=== PATIENT | male | born 1960 | race Caucasian/White ===

== ENCOUNTER 2016-10-29 09:40 | Inpatient (IN) ==
--- NOTE | 2016-10-28 22:04 | Discharge Summary ---
<Saniya Lester Murray - Last Filed: 10/28/16 22:01> - Discharge Diagnosis (1) Left rotator cuff tear arthropathy Priority: Primary Status: Acute - Discharge Medications Home Medications: OxyCODONE Immed Rel [Roxicodone 5 MG] 5 - 10 mg PO Q6HR PRN #40 tablet 10/28/16 [Rx] Albuterol Sulfate [Proair Hfa] 2 puff IH Q4H PRN 10/29/16 [History] Beclomethasone Diprop 40mcg [QVAR 40 mcg] 1 puff IH BID 10/29/16 [History] Cyclobenzaprine [Flexeril] 10 mg PO HS PRN 10/29/16 [History] Diclofenac Sodium [Voltaren] 50 mg PO Q8HR 10/29/16 [History] Gabapentin [Neurontin] 300 mg PO TID 10/29/16 [History] Meloxicam [Mobic] 15 mg PO DAILY 10/29/16 [History] Omeprazole [PriLOSEC] 40 mg PO DAILY 10/29/16 [History] Allergies/Adverse Reactions: Allergies Sulfa (Sulfonamide Antibiotics) Allergy (Verified 04/19/16 20:50) Hives Primary care physician: Rito Hurst - Patient Status Disposition: Home, Self-Care Condition: Good - Discharge Instructions Follow Up With: Rito Hurst MD [Primary Care Provider] - - Hospital Course Hospital course: Mr. Green is a 56 year old male - Time Spent with Patient Total time spent providing and/or coordinating discharge services: <Alex Coleman - Last Filed: 10/30/16 06:20> Date of Encounter: 10/30/16 Time of Encounter: 06:20 - Discharge Diagnosis (1) Left rotator cuff tear arthropathy Priority: Primary Status: Acute (2) Tobacco abuse Priority: Secondary Status: Chronic (3) Asthma Priority: Secondary Status: Chronic Qualifiers: Asthma severity: unspecified severity Asthma complication type: uncomplicated Qualified Code(s): J45.909 - Unspecified asthma, uncomplicated Primary care physician: Rito Hurst - Patient Status Functional capacity at discharge: independent ambulation Overall status at discharge: patient is progressing back to baseline - Hospital Course Hospital course: Mr. Green is a 56 year old male The patient had an uneventful postoperative course. They received antibiotics and physical therapy and were discharged in stable condition. There will follow -up in the office in 2 weeks. - Time Spent with Patient Total time spent providing and/or coordinating discharge services:
[2016-10-29] MEDS ORDERED: CeFAZolin Pre 2,000 MG/100 ML 2,000 MG/100 ML BAG IVPB ONE (10:05)
[2016-10-29] MEDS ORDERED: Albuterol 2.5 MG/3 ML NEBULIZER IH ONE (10:05)
[2016-10-29] MEDS ORDERED: Lidocaine -MPF 1% 2 ML VIAL ID ONE (10:05)
--- NOTE | 2016-10-29 10:07 | History & Physical Report ---
Date of Encounter: 10/29/16 Time of Encounter: 10:07 24 Hour HP Update - Instructions Instructions: If the History and Physical is less than 30 days old and was completed prior to A.M. admission and or procedure and has NOT been updated on calendar day of procedure please complete this update prior to performing procedure. - Update Patient reports changes in Medical Condition: No Changes in assessment/condition: No Changes in Medication: No Preop tests/diagnostics Reviewed: Yes Surgery Remains Indicated: Yes Consent for Planned Operative Procedure(s) Verified: Yes - Pre-Operative Checklist Preoperative Checklist Indicated: No Prophylactic Antibiotic Ordered: Yes Is VTE Prophylaxis Indicated?: Yes
[2016-10-29] MEDS ORDERED: Albuterol 2.5 MG/3 ML NEBULIZER ONE (10:10)
[2016-10-29] MEDS ORDERED: Ringers Solution, Lactated 1,000 ML IVC SCH ×2 (10:15→15:14)
[2016-10-29] MEDS ORDERED: Famotidine 20 MG/2 ML VIAL IVP ONE (10:51)
--- NOTE | 2016-10-29 11:06 | Anesthesia Evaluation PreOp ---
Date of Encounter: 10/29/16 Time of Encounter: 11:00 - Past History Planned Operation: Left Total Shoulder Reverse Ball Cardiac History: Denies any Significant Hx Pulmonary History: Smoker, Asthma SEISMIC OBSERVER History: Denies Any Significant HX Other Medical History: Denies Any Significant HX Anesthesia History: No Prior Anesthetic Complications Alcohol Use: occasionally Drug use: none Medications and Allergies OxyCODONE Immed Rel [Roxicodone 5 MG] 5 - 10 mg PO Q6HR PRN #40 tablet 10/28/16 [Rx] Albuterol Sulfate [Proair Hfa] 2 puff IH Q4H PRN 10/29/16 [History] Beclomethasone Diprop 40mcg [Qvar 40 mcg] 1 puff IH BID 10/29/16 [History] Cyclobenzaprine [Flexeril] 10 mg PO HS PRN 10/29/16 [History] Diclofenac Sodium [Voltaren] 50 mg PO Q8HR 10/29/16 [History] Gabapentin [Neurontin] 300 mg PO TID 10/29/16 [History] HYDROcodone/Acet 5/325 mg [[place] 5-325 mg] 1 - 2 tab PO Q8H PRN 10/29/16 [ History] Meloxicam [Mobic] 15 mg PO DAILY 10/29/16 [History] Omeprazole [PriLOSEC] 40 mg PO DAILY 10/29/16 [History] Allergies Sulfa (Sulfonamide Antibiotics) Allergy (Verified 04/19/16 20:50) Hives - Meds/Allergy Pre-op Review Medications Reviewed: Yes Allergies Reviewed: Yes Beta Blockers on Current Med List: No Anesthesia Results - Labs Laboratory Tests 09/01/16 14:12 Sodium 138 Potassium 3.9 BUN 15 Creatinine 1.02 - Imaging EKG: report reviewed (SR) Anesthesia Exam O2 Sat Height 1.78 m Height 1.78 m Height 1.78 m Weight 75.75 kg Weight 75.75 kg Weight 75.75 kg O2 Sat by Pulse Oximetry 96 O2 Sat by Pulse Oximetry 96 Vital Signs Temp Pulse Resp BP Pulse Ox 97.7 F 70 18 161/87 96 10/29/16 09:57 10/29/16 09:57 10/29/16 09:57 10/29/16 09:57 10/29/16 09:57 Height: 5'10 Weight: 167 lbs NPO (# of Hours): MN Pain Scale: 0 - HEENT Pupil (Motor): Pupils equal, EOMI Mallampati: II Teeth: Edentulous Oral Opening: Greater than 3 - SEISMIC OBSERVER LOC: Oriented SEISMIC OBSERVER Motor: Normal RUE, Normal LUE, Normal RLE, Normal LLE, Normal Face SEISMIC OBSERVER Sensory: Normal: RUE, LUE, RLE, LLE, Face - Cardiac Rhythm: Regular Murmur: None JVD: No Carotid Bruit: No - Pulmonary Breath Sounds: bilateral Clear Respiratory Effort: Symmetrical Anesthesia Assess/Plan ASA Score: 2 Modified [place] Scale for Level of Consciousness: Cooperative, oriented, and tranquil Anesthetic Plan: General, Regional Monitoring Plan: Standard Monitors Recovery Plan: PACU (Discussed GA and RA, agrees to proceed)
[2016-10-29] MEDS ORDERED: *HR* Propofol 200 MG/20 ML VIAL IVP ONE (11:48)
[2016-10-29] MEDS ORDERED: *HR* FentaNYL (PF) 100 MCG/2 ML VIAL ONE (11:49)
[2016-10-29] MEDS ORDERED: *HR* Midazolam HCl 2 MG/2 ML VIAL ONE (11:49)
[2016-10-29] MEDS ORDERED: Lidocaine -MPF 2% 2 ML VIAL ONE (11:49)
[2016-10-29] MEDS ORDERED: *HR* Rocuronium Bromide 50 MG/5 ML VIAL ONE (11:58)
[2016-10-29] MEDS ORDERED: ROPIVACAINE HCL/PF 0.5% 30 ML VIAL ONE (12:09)
[2016-10-29] MEDS ORDERED: Bupivacaine/Clonidine Syringe 1 EACH SYRINGE ONE (12:10)
--- NOTE | 2016-10-29 12:32 | Anesthesia Procedures ---
Date of Encounter: 10/29/16 Time of Encounter: 12:30 Procedures: Anesthesia - Nerve Block Procedure Date: 10/29/16 Time: 12:30 Allergies/Adv Reactions: Sulfa (Sulfonamide Antibiotics) Allergy (Verified 04/19/16 20:50) Hives Pre-op Diagnosis: left rotator cuff arthropathy Surgical Procedure: left shoulder reverse ball Checklist: Correct Patient Identifier, Correct procedure, History checked Correct side: Left Blood Thinner: No Monitor Applied: EKG, BP, Pulse Oximetry Supplemental Oxygen via Nasal Cannula (L/min): 2 Sedation: Versed (mg): 2 Sedation: Fentanyl (mcg): 100 Indication: Post Op Analgesia Pre-op Neuro Deficits: No Block Type: Supraclavicular Catheter placed: No Sterile Technique: Yes Ultrasound used: Yes Anatomy identified: Yes Visual spread of Local: Yes Neuro Stimulation: No Blood on Needle Aspiration: No Smooth Injection of Local: Yes Pain with Injection of Local: No Prep: Chlorhexadine Needle: 22 x 50 mm Stimuplex Local: 0.25% Bupivicaine w/Clonidine 20 mcg/cc (10cc superficial cervical plexus ), Ropivacaine (0.5% ropivicaine 15cc) Volume (cc): 25 Number of Attempts: 1 Complications: None/effective block
[2016-10-29] MEDS ORDERED: *HR* Promethazine 25 MG/ML VIAL IVP PRN (13:16)
[2016-10-29] MEDS ORDERED: Dexamethasone 4 MG/ML VIAL ONE (13:28)
[2016-10-29] MEDS ORDERED: Ondansetron 4 MG/2 ML VIAL ONE (13:28)
--- NOTE | 2016-10-29 13:46 | Orthopedic Operative Note ---
Date of procedure: 10/29/16 Pre-op diagnosis: Left shoulder cuff tear arthropathy Post-op diagnosis: same Procedure: Procedure: Left Total Shoulder Replacment Reverse, Estimated blood loss: 100 cc Hardware:Arthrex large glenoid baseplate, 2 4.5 screws. 1 6.5 screw, 42 lateral glenosphere, 9 humeral stem, poly insert 6 Exam Under anesthesia: Full Motion no instability Procedural Notes: Grade 4 arthritic changes humeral head irreparable tear Operative procedure: The patient was brought to the operating room and placed on the operating room table. After general anesthesia was administered the operative shoulder was examined. Findings were noted. The patient was placed in the modified beachchair position. All pressure points were padded appropriately. And the head was stabilized in the neutral position. The operative extremity was prepped and draped in the sterile surgical fashion. The patient received IV antibiotics prior to skin incision. A standard deltopectoral approach was made to the operative shoulder. Incision was made to the skin and subcutaneous tissue,hemo stasis was obtained with Bovie cautery. Using careful blunt dissection the cephalic vein was identified and mobilized medially. The deltopectoral interval was developed and the clavipectoral fascia was incised. The subscap was released off the lesser tuberosity and tagged with #2 FiberWire suture. The humerus was dislocated patient noted to have irreparable tear supraspinatus tendon, patient noted to have grade 4 arthritic changes humeral head and the humeral cut was made along the anatomic neck. Anterior and posterior Bankart retractors were placed to expose the glenoid. The glenoid guide was seated and the centering hole was made. It was reamed with the appropriate reamer. The large baseplate was seated and secured with (2) 4.5 screws and one 6.5 screw. The baseplate was irrigated and dried and the 42 lateral Glenosphere was seated and secured with the Mcdonald taper. The Mcdonald taper was tested and found to be secure the humerus was redislocated and prepared with the diaphyseal reamers, followed by a broaching process up to the appropriate size 9 in the patient's anatomic version. The metaphyseal reamer was then utilized. Trial reduction found the shoulder to be relocatable. Trial components were removed and drill holes were placed in the lesser tuberosity. They were filled with #5 FiberWire suture. These sutures were used for a subscap repair. The appropriate 9 stem was impacted in place in the patient's anatomic version. Trial reduction found the shoulder to be relocatable and stable with the appropriate 6. Trial component was removed and the real 6 was seated and secured the shoulder was reduced. The shoulder had excellent motion and excellent stability and no evidence of dislocation. The deep tissue was irrigated with pulse irrigation. The subscap was repaired incorporating the biceps tendon for biceps tenodesis and a subscap repair. The deltopectoral interval was closed with a running #1 PDS suture, subcutaneous tissue was irrigated and closed with 0 PDS suture, the skin was closed with Dermabond. The patient was placed in a sterile dressing, abduction brace and extubated. The patient was then transferred to the recovery room in stable condition. Anesthesia: NICO Surgeon: Alex Coleman Gaming Pit Boss: Saniya Lester Condition: stable Disposition: PACU
[2016-10-29] MEDS: *HR* HYDROmorphone (PF) 1 MG/ML SYRINGE IVP PRN ×2 (14:07→14:14)
[2016-10-29] MEDS ORDERED: Ketorolac 30 MG/ML VIAL IVP ONE (14:24)
[2016-10-29 14:51] LABS: Hematocrit 43.4 % (37.5-50.1); Hemoglobin 14.3 g/dL (12.9-16.9)
--- NOTE | 2016-10-29 14:59 | Anesthesia Evaluation Post Op ---
Date of Encounter: 10/29/16 Time of Encounter: 14:59 - Vital Signs Vital Signs: Last Vital Signs Temp 97.0 F L 10/29/16 14:31 Pulse 54 10/29/16 14:51 Resp 16 10/29/16 14:51 BP 178/90 10/29/16 14:41 Pulse Ox 100 10/29/16 14:51 - Lungs Lungs: Clear Ascult./Percussion - Airway Airway: Non-obstructed - Cardiovascular Regular Rate - Mental Status Mental Status: Alert & Oriented, Answers Appropriately - Pain Pain Scale: 2 - Nausea Vomiting Nausea Vomiting: Not Present - Hydration Hydration: Ice chips - Discharge PostOp Status: Transfer Patient to floor
[2016-10-29] MEDS ORDERED: *HR* OxyCODONE Immed Rel 5 MG TABLET PO PRN (15:14)
[2016-10-29] MEDS ORDERED: *HR* HYDROmorphone (PF) 1 MG/ML SYRINGE IVP PRN (15:14)
[2016-10-29] MEDS ORDERED: Ondansetron 4 MG/2 ML VIAL IVP PRN (15:14)
[2016-10-29] MEDS ORDERED: Sennosides 8.6 MG TABLET PO PRN (15:14)
[2016-10-29] MEDS ORDERED: Temazepam 15 MG CAPSULE PO PRN (15:14)
[2016-10-29] MEDS ORDERED: Naloxone 0.4 MG/ML INJ IVP PRN (15:14)
[2016-10-29] MEDS ORDERED: MOM Conc 10 ML UD.LIQ PO PRN (15:14)
[2016-10-29] MEDS ORDERED: Acetaminophen 325 MG TABLET PO PRN (15:14)
[2016-10-29] MEDS: Gabapentin 300 MG CAPSULE PO SCH ×2 (16:15→20:27)
[2016-10-29] MEDS: *HR* OxyCODONE Immed Rel 5 MG TABLET PO PRN ×2 (16:15→20:27)
[2016-10-29] MEDS: *HR* Enoxaparin 30 MG/0.3 ML SYRINGE SQ SCH (16:15)
[2016-10-29] MEDS ORDERED: *HR* Enoxaparin 30 MG/0.3 ML SYRINGE SQ SCH (18:00)
[2016-10-29] MEDS: Nicotine 21 MG PATCH.TD24 TD SCH (19:13)
[2016-10-29] MEDS: ceFAZolin 2,000 MG in D5% in Water 100 ML IVPB SCH (20:27)
[2016-10-29] MEDS: Beclomethasone 40mcg MDI IH SCH (20:47)
[2016-10-30] MEDS: *HR* OxyCODONE Immed Rel 5 MG TABLET PO PRN ×2 (03:46→09:56)
[2016-10-30] MEDS: *HR* Enoxaparin 30 MG/0.3 ML SYRINGE SQ SCH (05:21)
[2016-10-30] MEDS: ceFAZolin 2,000 MG in D5% in Water 100 ML IVPB SCH (05:21)
[2016-10-30 05:57] LABS: Hematocrit 43.5 % (37.5-50.1); Hemoglobin 14.6 g/dL (12.9-16.9)
--- NOTE | 2016-10-30 06:21 | Orthopedics Progress Note ---
Date of Encounter: 10/30/16 Time of Encounter: 06:21 - Assessment and Plan (1) Left rotator cuff tear arthropathy Current Visit: Yes Status: Acute (2) Tobacco abuse Current Visit: Yes Status: Chronic (3) Asthma Current Visit: Yes Status: Chronic Qualifiers: Asthma severity: unspecified severity Asthma complication type: uncomplicated Qualified Code(s): J45.909 - Unspecified asthma, uncomplicated Subjective Interval history: Patient was seen this morning doing well without complaints. Afebrile vital signs stable. Operative extremity: Neurovascularly intact Dressing clean dry and intact Calves nontender Assessment and plan: Continue with postoperative care Discharged today Objective Vital signs: Vital Signs Temp Pulse Resp BP Pulse Ox 10/30/16 04:47 98.4 F 66 16 148/78 96 10/30/16 00:37 97.8 F 75 18 169/84 97 10/29/16 20:47 64 16 95 10/29/16 20:30 97.7 F 65 18 165/85 95 10/29/16 17:39 97.3 F L 66 15 172/89 95 10/29/16 16:30 97.4 F L 61 18 171/84 100 10/29/16 15:55 97.4 F L 56 18 179/88 100 10/29/16 15:19 98.5 F 56 18 163/82 100 10/29/16 15:09 58 16 175/95 100 10/29/16 15:01 97.0 F L 55 16 168/90 99 10/29/16 14:51 54 16 168/88 100 10/29/16 14:41 53 16 178/90 99 10/29/16 14:31 97.0 F L 59 16 178/94 100 10/29/16 14:21 54 14 170/92 100 10/29/16 14:11 60 16 164/94 99 10/29/16 14:01 97.2 F L 59 12 176/93 100 10/29/16 12:27 60 16 158/88 98 10/29/16 12:11 63 16 159/90 99 10/29/16 10:17 18 96 10/29/16 09:57 97.7 F 70 18 161/87 96 Intake and Output 10/29/16 10/29/16 10/30/16 15:59 23:59 07:59 Intake Total 100 / 100 960 / 960 600 / 600 Output Total 100 / 100 Balance 0 / 0 960 / 960 600 / 600 Intake: IV Fluids 100 / 100 100 / 100 Ancef 2,000 MG In 100 / 100 Dextrose 5% 100 ML @ 200 mls/hr IVPB Q8H GRACE Rx#: [id number] Ancef Premix 2,000 MG/100 100 / 100 ML 2,000 mg In 100 ml @ 200 mls/hr IVPB PREOP ONE Rx#:[id number] Oral 0 / 0 960 / 960 500 / 500 Output: Estimated Blood Loss 100 / 100 Other: Meal Dinner Percent of Meal Consumed 100% # Voids 1 Weight 75.75 kg - Labs CBC & BMP: 10/30/16 05:14 - VTE Documentation of Mechanical Device: Venous foot pump, device Consult Discharge Plan - Plan Referrals: Rito Hurst MD [Primary Care Provider] -
[2016-10-30 06:45] VITALS: BP 180/76
[2016-10-30] MEDS: Beclomethasone 40mcg MDI IH SCH (08:16)
[2016-10-30] MEDS: Gabapentin 300 MG CAPSULE PO SCH (09:55)
[2016-10-30] MEDS: Nicotine 21 MG PATCH.TD24 TD SCH (09:57)
== END 2016-10-30 11:58 | disposition home or self-care (01) | DRG 315 ==
LOC: SAMDAY 09:40 → 3NENU 15:15
PROVIDERS: ADMIT Orthopaedic Surgery; ATTEND Orthopaedic Surgery

== ENCOUNTER 2017-08-18 13:22 | Inpatient (IN) ==
--- NOTE | 2017-08-18 13:43 | Emergency Department Note ---
Disposition Clinical Impression: Status post surgery Pulmonary embolism Qualifiers: Pulmonary embolism type: saddle Chronicity: acute Acute cor pulmonale presence : without acute cor pulmonale Qualified Code(s): I26.92 - Saddle embolus of pulmonary artery without acute cor pulmonale COPD (chronic obstructive pulmonary disease) Qualifiers: COPD type: COPD with acute exacerbation Qualified Code(s): J44.1 - Chronic obstructive pulmonary disease with (acute) exacerbation Disposition: Admitted As Inpatient Condition: Fair Time of Disposition: 18:00 Abdominal Pain HPI - General Chief Complaint: ED Abdominal Pain Stated Complaint: right abdominal/flank/back pain Time Seen by Provider: 08/18/17 13:26 Source: patient Mode of arrival: EMS Limitations: physical limitation Nursing Notes Reviewed: Yes Vital Signs Reviewed: Yes - History of Present Illness HPI Narrative: Mr. Polo is a 57-year-old with history of recent spinal fusion on August 13, COPD, asthma who presents to the ED with right abdominal and flank pain of approximately 24 hours duration which began insidiously and has become severe to the level of 8 out of 9. The pain is sharp and radiates towards his back and flank. He says that the pain is intense, and has made challenging for him to breathe because when he takes a deep breath and movement causes the pain to be worse. He has actually had a decrease in his ability to use his incentive spirometry as a result of this pain. He has never had a pain like this before, nothing seems to make it much better. He denies any fevers or chills throughout this process. He also denies any chest pain. - Related Data Home Medications Medication Instructions Recorded Confirmed RX: Albuterol Sulfate [Proair Hfa] 2 puff IH Q4H PRN 10/29/16 08/18/17 RX: Beclomethasone Diprop 40mcg 1 puff IH BID 10/29/16 08/18/17 [QVAR 40 mcg] RX: Cyclobenzaprine [Flexeril] 10 mg PO HS PRN 10/29/16 08/18/17 RX: Gabapentin [Neurontin] 600 mg PO TID 10/29/16 08/18/17 RX: Meloxicam [Mobic] 15 mg PO DAILY 10/29/16 08/18/17 RX: Albuterol Neb [Proventil Neb] 2.5 mg IH Q4H PRN 08/13/17 08/18/17 RX: Aspirin [Lo-Dose Aspirin EC] 81 mg PO DAILY 08/13/17 08/18/17 Previous Rx's Medication Instructions Recorded RX: OxyCODONE Immed Rel 5 mg PO Q6HR PRN #30 tablet 08/14/17 [Roxicodone 5 MG] Allergies Allergy/AdvReac Type Severity Reaction Status Date / Time Sulfa (Sulfonamide Allergy Hives Verified 08/18/17 13:25 Antibiotics) Constitutional: Denies: fever, chills, weakness Eyes: Denies: vision change ENT ED: Denies: congestion Cardiovascular: Denies: chest pain, palpitations, orthopnea, syncope Respiratory: Reports: cough, dyspnea, wheezes, sputum production Gastrointestinal: Reports: abdominal pain, nausea. Denies: vomiting, diarrhea, constipation Genitourinary: Reports: urgency, frequency. Denies: dysuria, hematuria, discharge Musculoskeletal: Reports: back pain Integumentary: Denies: rash Neurological: Denies: headache Endocrine: Denies: fatigue Hematological/Lymphatic: Denies: easy bleeding Abdominal Pain PMH - Past Medical History Medical history: Reports: arthritis, asthma, COPD, hypertension Male Surgical History: Reports: hip replacement, Tonsillectomy Psychiatric history: Reports: no psych history - Social History Smoking status: Current every day smoker Alcohol use: Reports: occasionally Drug use: Reports: marijuana Physical Exam Gen.: Vitals noted. No acute distress. AAOx3 HEENT: oropharynx clear, Normocephalic, atraumatic Neck: Supple. No adenopathy. Cardiac: RRR, no murmur, +S1/S2 Pulmonary: CTA bilaterally, no wheezes, rales or rhonchi, equal chest expansion Abdomen: soft, nontender, BS noted, no guarding Back: R. CVA Tenderness. Midline lumbar incision with steristrips and sutures intact s/p spinal fusion MSK: ROM intact, no joint swelling noted Extremities: no BLE edema, nontender calf, no cyanosis or clubbing Neuro: A&Ox3, moves all extremities, no focal deficits Psych: Appropriate mood and behavior Course Vital Signs Pulse Rate 99 08/18/17 13:30 Respiratory Rate 20 08/18/17 13:30 Blood Pressure 134/85 08/18/17 13:30 O2 Sat by Pulse Oximetry 92 08/18/17 13:30 Temperature 98.6 F 08/18/17 19:47 Pulse Rate 73 08/18/17 19:47 Respiratory Rate 20 08/18/17 19:47 Blood Pressure 126/78 08/18/17 19:47 O2 Sat by Pulse Oximetry 95 08/18/17 19:47 Oxygen Delivery Oxygen Delivery Nasal Cannula Abdominal Pain - MDM Narrative Medical decision making narrative: I reviewed the patient's labs and imaging. The patient is recently out of surgery on 08/13, and has a vague complaint of abdominal pain. Although he is not tachycardic, he does mention that he has had increased pain in his left side upon deep inspiration. Because of the patient's recent surgery I did determine that it would be appropriate to do a CTA of the chest to rule out PE. CT of the chest demonstrated bilateral pulmonary embolisms in the right lower and left lower pulmonary arteries. I spoke with the patient's surgeon Dr. Polanco about risks and benefits of anticoagulation and he was not concerned about the risks of anticoagulation in relation to his back surgery. At that time I did start the patient on anticoagulation with heparin. I also ordered a CT of the abdomen due to the abdominal pain he initially complained about which did not demonstrate any acute process in the abdomen. I think the most likely cause of this patient's pain was the pulmonary embolisms. I spoke with the hospitalist who is willing to accepted the patient. The patient and his family understood and agreed to this plan. - Medical Records Medical records reviewed: Yes I reviewed the patient's medical records. - Lab Data Lab results reviewed: Yes I reviewed the patient's lab results. Result diagrams: 08/18/17 14:34 08/18/17 13:54 Lab Results 08/18/17 08/18/17 08/18/17 Range/Units 13:42 13:54 13:54 WBC (4.3-11.1) K/mcL RBC (4.19-5.50) M/mcL Hgb (12.9-16.9) g/dL Hct (37.5-50.1) % MCV (83.0-100.0) fL MCH (28.0-33.3) pg MCHC (31.6-35.5) g/dL RDW (11.5-14.5) % Plt Count (140-400) K/mcL MPV (9.4-12.4) fL Immature Gran % (0-4) % Seg Neutrophils % % Lymphocytes % % Monocytes % % Eosinophils % % Basophils % % Neutrophils # (1.6-8.9) K/mcL Lymphocytes # (0.6-4.6) K/mcL Monocytes # (0.0-1.3) K/mcL Eosinophils # (0.0-0.6) K/mcL Basophils # (0.0-0.2) K/mcL PT (9.4-12.1) Seconds INR APTT (26.0-36.0) Seconds Sodium 131 L (136-145) mEq/L Potassium 4.5 (3.5-5.1) mEq/L Chloride 98 (98-107) mEq/L Carbon Dioxide 28 (23-29) mEq/L BUN 15 (6-20) mg/dL Creatinine 0.99 (0.70-1.30) mg/dL Est GFR ( Amer) > 60 (> 60) Est GFR (Non-Af Amer) > 60 (> 60) BUN/Creatinine Ratio 15 (6-26) Glucose 125 H (70-105) mg/dL Calculated Osmolality 274 L (280-300) Lactic Acid 1.1 (0.5-2.2) mmol/L Calcium 9.3 (8.6-10.3) mg/dL Total Bilirubin 0.7 (0.3-1.0) mg/dL Direct Bilirubin 0.1 (0.0-0.2) mg/dL Indirect Bilirubin 0.6 (0.0-1.2) mg/dL AST 19 (13-39) Units/L ALT 20 (7-52) Units/L Alkaline Phosphatase 80 (34-104) Units/L Troponin I (< 0.04) ng/mL Serum Total Protein 7.3 (6.4-8.9) g/dL Albumin 3.3 L (3.5-5.7) g/dL Globulin 4.0 H (2.4-3.5) g/dL Albumin/Globulin Ratio 0.8 L (1.1-2.2) Lipase 10 L (11-82) Units/L Urine Color Yellow (Yellow) Urine Clarity Clear (Clear) Urine pH 6.0 (5.0-8.0) pH Units Ur Specific [place] 1.015 (1.010-1.025) Urine Protein Negative (Neg-Trace) mg/dL Urine Glucose (UA) Normal (Normal) mg/dL Urine Ketones Negative (Negative) mg/dL Urine Blood Negative (Negative) Urine Nitrite Negative (Negative) Urine Bilirubin Negative (Negative) Urine Urobilinogen Normal (Normal) mg/dL Ur Leukocyte Esterase Negative (Negative) Ur Culture Indicated? NO (NO) Specimen Rejected 08/18/17 08/18/17 08/18/17 Range/Units 13:54 13:57 14:21 WBC (4.3-11.1) K/mcL RBC (4.19-5.50) M/mcL Hgb (12.9-16.9) g/dL Hct (37.5-50.1) % MCV (83.0-100.0) fL MCH (28.0-33.3) pg MCHC (31.6-35.5) g/dL RDW (11.5-14.5) % Plt Count (140-400) K/mcL MPV (9.4-12.4) fL Immature Gran % (0-4) % Seg Neutrophils % % Lymphocytes % % Monocytes % % Eosinophils % % Basophils % % Neutrophils # (1.6-8.9) K/mcL Lymphocytes # (0.6-4.6) K/mcL Monocytes # (0.0-1.3) K/mcL Eosinophils # (0.0-0.6) K/mcL Basophils # (0.0-0.2) K/mcL PT 12.8 H (9.4-12.1) Seconds INR 1.2 APTT 25.6 L (26.0-36.0) Seconds Sodium (136-145) mEq/L Potassium (3.5-5.1) mEq/L Chloride (98-107) mEq/L Carbon Dioxide (23-29) mEq/L BUN (6-20) mg/dL Creatinine (0.70-1.30) mg/dL Est GFR ( Amer) (> 60) Est GFR (Non-Af Amer) (> 60) BUN/Creatinine Ratio (6-26) Glucose (70-105) mg/dL Calculated Osmolality (280-300) Lactic Acid (0.5-2.2) mmol/L Calcium (8.6-10.3) mg/dL Total Bilirubin (0.3-1.0) mg/dL Direct Bilirubin (0.0-0.2) mg/dL Indirect Bilirubin (0.0-1.2) mg/dL AST (13-39) Units/L ALT (7-52) Units/L Alkaline Phosphatase (34-104) Units/L Troponin I < 0.03 (< 0.04) ng/mL Serum Total Protein (6.4-8.9) g/dL Albumin (3.5-5.7) g/dL Globulin (2.4-3.5) g/dL Albumin/Globulin Ratio (1.1-2.2) Lipase (11-82) Units/L Urine Color (Yellow) Urine Clarity (Clear) Urine pH (5.0-8.0) pH Units Ur Specific [place] (1.010-1.025) Urine Protein (Neg-Trace) mg/dL Urine Glucose (UA) (Normal) mg/dL Urine Ketones (Negative) mg/dL Urine Blood (Negative) Urine Nitrite (Negative) Urine Bilirubin (Negative) Urine Urobilinogen (Normal) mg/dL Ur Leukocyte Esterase (Negative) Ur Culture Indicated? (NO) Specimen Rejected Accident 08/18/17 Range/Units 14:34 WBC 12.3 H (4.3-11.1) K/mcL RBC 4.59 (4.19-5.50) M/mcL Hgb 13.6 (12.9-16.9) g/dL Hct 41.0 (37.5-50.1) % MCV 89.3 (83.0-100.0) fL MCH 29.6 (28.0-33.3) pg MCHC 33.2 (31.6-35.5) g/dL RDW 12.6 (11.5-14.5) % Plt Count 313 (140-400) K/mcL MPV 9.7 (9.4-12.4) fL Immature Gran % 2.9 (0-4) % Seg Neutrophils % 69.9 % Lymphocytes % 14.7 % Monocytes % 10.7 % Eosinophils % 1.1 % Basophils % 0.7 % Neutrophils # 8.6 (1.6-8.9) K/mcL Lymphocytes # 1.8 (0.6-4.6) K/mcL Monocytes # 1.3 (0.0-1.3) K/mcL Eosinophils # 0.1 (0.0-0.6) K/mcL Basophils # 0.1 (0.0-0.2) K/mcL PT (9.4-12.1) Seconds INR APTT (26.0-36.0) Seconds Sodium (136-145) mEq/L Potassium (3.5-5.1) mEq/L Chloride (98-107) mEq/L Carbon Dioxide (23-29) mEq/L BUN (6-20) mg/dL Creatinine (0.70-1.30) mg/dL Est GFR ( Amer) (> 60) Est GFR (Non-Af Amer) (> 60) BUN/Creatinine Ratio (6-26) Glucose (70-105) mg/dL Calculated Osmolality (280-300) Lactic Acid (0.5-2.2) mmol/L Calcium (8.6-10.3) mg/dL Total Bilirubin (0.3-1.0) mg/dL Direct Bilirubin (0.0-0.2) mg/dL Indirect Bilirubin (0.0-1.2) mg/dL AST (13-39) Units/L ALT (7-52) Units/L Alkaline Phosphatase (34-104) Units/L Troponin I (< 0.04) ng/mL Serum Total Protein (6.4-8.9) g/dL Albumin (3.5-5.7) g/dL Globulin (2.4-3.5) g/dL Albumin/Globulin Ratio (1.1-2.2) Lipase (11-82) Units/L Urine Color (Yellow) Urine Clarity (Clear) Urine pH (5.0-8.0) pH Units Ur Specific [place] (1.010-1.025) Urine Protein (Neg-Trace) mg/dL Urine Glucose (UA) (Normal) mg/dL Urine Ketones (Negative) mg/dL Urine Blood (Negative) Urine Nitrite (Negative) Urine Bilirubin (Negative) Urine Urobilinogen (Normal) mg/dL Ur Leukocyte Esterase (Negative) Ur Culture Indicated? (NO) Specimen Rejected - Radiology Data Radiology results reviewed: Yes I reviewed the patient's radiology results. - EKG Data EKG attestation: Yes I reviewed and interpreted this EKG. EKG results narrative: EKG demonstrates sinus rhythm with a ventricular rate of 87. Normal 121 QRS duration [address] QTC [address]-T wave changes and lateral leads without obvious elevation
--- NOTE | 2017-08-18 13:47 | Emergency Department Note ---
START Narrative - START START: I examined this patient and my medical decision-making was reviewed with the Resident Physician. I agree with the documented findings, disposition and treatment plan as described except to the extent set forth below. 57 year old male presnt to the ED via EMS for increased pain with breathing s/p a lumabr fusion done by Dr. Polanco on 08/07/17. Paitnet states he is also experienving increase rUQ pain with radiation into his back. No history of kidney stones, pyelo, and UTIs in the past no recent ABX use. No history of DVT/ PEs. We will do cardiopulmonary workup with CTA chest to rule out PE and ABCT with labs.
[2017-08-18 13:55] LABS: Bilirubin,Urine Negative (Negative); Blood,Urine Negative (Negative); Clarity,Urine Clear (Clear); Color,Urine Yellow (Yellow); Glucose,Urine (UA) Normal (Normal); Ketones,Urine Negative (Negative); Leukocyte Esterase,Urine Negative (Negative); Nitrite,Urine Negative (Negative); Protein,Urine Negative (Neg-Trace); Specific Gravity,Urine 1.015 (1.010-1.025); Urobilinogen,Urine Normal (Normal)
[2017-08-18 14:43] LABS: Alanine Aminotransferase 20 Units/L (7-52); Albumin 3.3 g/dL (3.5-5.7); Albumin/Globulin Ratio 0.8 (1.1-2.2); Alkaline Phosphatase 80 Units/L (34-104); Aspartate Amino Transferase 19 Units/L (13-39); BUN/Creatinine Ratio 15 (6-26); Bilirubin,Direct 0.1 mg/dL (0.0-0.2); Bilirubin,Indirect 0.6 mg/dL (0.0-1.2); Bilirubin,Total 0.7 mg/dL (0.3-1.0); Blood Urea Nitrogen 15 mg/dL (6-20); Calcium 9.3 mg/dL (8.6-10.3); Carbon Dioxide 28 mEq/L (23-29); Chloride 98 mEq/L (98-107); Glucose 125 mg/dL (70-105); Lipase 10 Units/L (11-82); Osmolality,Calculated 274 (280-300); Potassium 4.5 mEq/L (3.5-5.1); Sodium 131 mEq/L (136-145); Total Protein 7.3 g/dL (6.4-8.9); eGFR For African Americans > 60 (> 60); eGFR For Non-African Americans > 60 (> 60)
[2017-08-18 14:43] LABS: Basophils # 0.1 K/mcL (0.0-0.2); Basophils % 0.7 %; Eosinophils # 0.1 K/mcL (0.0-0.6); Eosinophils % 1.1 %; Hemoglobin 13.6 g/dL (12.9-16.9); Immature Granulocytes % 2.9 % (0-4); Lymphocytes # 1.8 K/mcL (0.6-4.6); Lymphocytes % 14.7 %; Mean Corpuscular HGB Conc 33.2 g/dL (31.6-35.5); Mean Corpuscular Hemoglobin 29.6 pg (28.0-33.3); Mean Corpuscular Volume 89.3 fL (83.0-100.0); Mean Platelet Volume 9.7 fL (9.4-12.4); Monocytes # 1.3 K/mcL (0.0-1.3); Monocytes % 10.7 %; Neutrophils # 8.6 K/mcL (1.6-8.9); Platelet Count 313 K/mcL (140-400); Red Blood Count 4.59 M/mcL (4.19-5.50); Red Cell Distribution Width 12.6 % (11.5-14.5); Segmented Neutrophils % 69.9 %
[2017-08-18] MEDS ORDERED: *HR* Morphine 2 MG/ML SYRINGE IVP ONE (15:06)
[2017-08-18] MEDS ORDERED: *HR* OxyCODONE/APAP 5/325 TABLET PO ONE (15:06)
[2017-08-18] MEDS ORDERED: *HR* Heparin 5,000 UNIT/ML VIAL IVP ONE (15:55)
[2017-08-18] MEDS ORDERED: *HR* Heparin 5,000 UNIT/ML VIAL IVP PRN (15:55)
[2017-08-18 16:23] LABS: INR 1.2; Prothrombin Time 12.8 Seconds (9.4-12.1)
[2017-08-18 16:25] LABS: Activated Partial Thrombo Time 25.6 Seconds (26.0-36.0)
[2017-08-18] MEDS ORDERED: MOM Conc 10 ML UD.LIQ PO PRN (16:32)
[2017-08-18] MEDS ORDERED: Acetaminophen 325 MG TABLET PO PRN (16:32)
[2017-08-18] MEDS ORDERED: Ondansetron 4 MG/2 ML VIAL IVP PRN (16:32)
[2017-08-18] MEDS ORDERED: Mag Hydrox/Al Hydrox/Simeth 30 ML UDC PO PRN (16:32)
[2017-08-18] MEDS ORDERED: Naloxone 0.4 MG/ML INJ IVP PRN (16:32)
[2017-08-18] MEDS ORDERED: *HR* OxyCODONE Immed Rel 5 MG TABLET PO PRN ×2 (16:34)
--- NOTE | 2017-08-18 16:36 | Internal Med History&Physical ---
<Freeman,Halina J - Last Filed: 08/18/17 18:06> Date of Encounter: 08/18/17 Time of Encounter: 16:36 Assessment and Plan (1) Pulmonary embolism Current visit: Yes Status: Acute presented with pleuritic chest pain. Chest CTA with acute bilateral pulmonary embolism, no evidence of right ventricular strain. Appears to be provoked in the setting of recent surgery. Dr. Polanco consulted in ED and okay to proceed with heparin gtt. Hemodynamically stable, no tachycardia or hypotension. Continue heparin gtt, will need to address further anticoagulation once seen by Dr. Polanco. Echo pending to assess for right heart strain. Qualifiers: Pulmonary embolism type: saddle Chronicity: acute Acute cor pulmonale presence: without acute cor pulmonale Qualified Code(s): I26.92 - Saddle embolus of pulmonary artery without acute cor pulmonale (2) COPD (chronic obstructive pulmonary disease) Current visit: Yes Status: Acute per hx. With diffuse scant wheezing on exam. Chest CTA shows mucous plugging and bilateral lobes, concerning for bronchiolitis edema or pneumonitis. WBC mildly elevated at 12.3, afebrile. Empirically treat with IV Levaquin, hold on steroids. PRN duo nebs. Urinary antigens, respiratory PCR pending. De- escalate ATB as he clinically improves and/or cultures finalized. Qualifiers: COPD type: COPD with acute exacerbation Qualified Code(s): J44.1 - Chronic obstructive pulmonary disease with (acute) exacerbation (3) Lumbar stenosis Current visit: No Status: Chronic with radiculopathy. S/p L2-5 laminectomy on 08/13/2017per Dr. Polanco. Neurologically intact. Incision without s/sx infection. Cont gabapentin, flexeril and oxycodone for pain. Dr. Polanco consulted Qualifiers: Neurogenic claudication status: with neurogenic claudication Qualified Code (s): M48.062 - Spinal stenosis, lumbar region with neurogenic claudication (4) DVT prophylaxis Current visit: Yes Status: Acute heparin gtt Internal Medicine - H&P: HPI Chief complaint: SOB Admitted From: Home Plans for Post Hospital Care: Home History of present illness: Mr. Green is a 57 year old male with past medical history COPD and recent back surgery who presented to [facility] 08/18/2017 with complaints of right-sided pleuritic chest pain. He was found to have bilateral pulmonary embolism and was started on heparin drip and EGD. Placed in observation status for further workup and treatment. Information obtained from chart review and patient report. Patient says he feels overall little better at time of my exam. Still with some shortness of breath that is worse with exertion. No chest pain. Says shortness of breath started yesterday afternoon has progressively gotten worse. No history of blood clots. No history of cancer recent surgery 5 days ago. Past Med Surg Social Fam HX - Past Medical History Medical history: arthritis, asthma, COPD, hypertension Psychiatric history: no psych history - Past Surgical History Surgical History: hip replacement - Social History Smoking Status: Current every day smoker Smokeless Tobacco Status: No Alcohol use: occasionally Drug use: marijuana - Family History Mother Living Status: Still Living Hx Family Endocrine Disorder: Yes (dm) Hx Family Neurologic Disorders: Yes (dementia) Internal Medicine - H&P: Meds Albuterol Sulfate [Proair Hfa] 2 puff IH Q4H PRN 10/29/16 [History] Beclomethasone Diprop 40mcg [QVAR 40 mcg] 1 puff IH BID 10/29/16 [History] Cyclobenzaprine [Flexeril] 10 mg PO HS PRN 10/29/16 [History] Gabapentin [Neurontin] 600 mg PO TID 10/29/16 [History] Meloxicam [Mobic] 15 mg PO DAILY 10/29/16 [History] Albuterol Neb [Proventil Neb] 2.5 mg IH Q4H PRN 08/13/17 [History] Aspirin [Lo-Dose Aspirin EC] 81 mg PO DAILY 08/13/17 [History] OxyCODONE Immed Rel [Roxicodone 5 MG] 5 mg PO Q6HR PRN #30 tablet 08/14/17 [Rx] 3 Allergy/AdvReac Type Severity Reaction Status Date / Time Sulfa (Sulfonamide Allergy Hives Verified 08/18/17 13:25 Antibiotics) All Systems PM: A 10-system review of systems was performed and is negative for pertinent findings except as documented above in the HPI. - Constitutional Constitutional: no chills, no fever(s), no night sweats - EENT Eyes: no change in vision, no discharge, no pain, no photophobia Ears: no ear discharge, no ear pain, no tinnitus Nose, mouth and throat: no dysphagia, no nasal discharge, no neck pain, no sore throat - Cardiovascular Cardiovascular ROS IM: no chest pain, no diaphoresis, no dyspnea, no lightheadedness, no palpitations, no syncope - Respiratory Respiratory: cough, dyspnea on exertion, no dyspnea, no wheezing, no excessive phlegm production - Gastrointestinal Gastrointestinal: no abdominal pain, no diarrhea, no hematemesis, no hematochezia, no melena, no nausea, no vomiting - Musculoskeletal Musculoskeletal ROS IM: back pain, no numbness, no tingling - Integumentary Integumentary IM: no rash, no unusual bruising - Neurological Neurological ROS: no confusion, no convulsions, no focal weakness, no numbness, no tingling, no tremor(s) - Hematologic/Lymphatic Hematologic/Lymphatic: no easy bruising - Constitutional Vitals: Temp Pulse Resp BP Pulse Ox 97.9 F 83 20 139/85 94 08/18/17 13:35 08/18/17 14:30 08/18/17 14:30 08/18/17 14:30 08/18/17 14:30 General appearance: Present: A&O X 3, no acute distress - Head Head exam: Present: atraumatic, normocephalic - Eye Eye exam: Present: PERRL, conjuntiva pink, sclera anicteric Pupils: Present: PERRL - Neck Neck exam general surgery: Present: supple, trachea midline. Absent: lymphadenopathy - Respiratory Respiratory exam: Present: CTAB. Absent: accessory muscle use, rales, rhonchi, wheezes - Cardiovascular Cardiovascular exam: Present: RRR, +S1, +S2. Absent: diastolic murmur, gallop, rubs, systolic murmur - GI/Abdominal GI/Abdominal exam: Present: normal bowel sounds, soft, no peritoneal signs. Absent: distended, tenderness - Extremities Exam Extremities exam: Present: warm, radial pulses palpable and symmetrical. Absent : calf tenderness, cyanotic, pedal edema - Neurological Exam Neurological exam: Present: CN II-XII intact, oriented X3, no focal deficits. Absent: pronater drift, facial droop, speech deficit - Skin Skin exam: Present: dry, intact - Expanded Skin Exam Full body front and back image: 1 - Lumbar incision clean/dry/intact. No drainage. Mild erythema Internal Med - H&P Results - Labs CBC & Chem 7: 08/18/17 14:34 08/18/17 13:54 Labs: Short CBC 08/18/17 Range/Units 14:34 WBC 12.3 H (4.3-11.1) K/mcL Hgb 13.6 (12.9-16.9) g/dL Hct 41.0 (37.5-50.1) % Plt Count 313 (140-400) K/mcL Neutrophils # 8.6 (1.6-8.9) K/mcL BMP 08/18/17 13:54 Sodium 131 L Potassium 4.5 Chloride 98 Carbon Dioxide 28 BUN 15 Creatinine 0.99 Glucose 125 H Calcium 9.3 Cardiac Enzymes 08/18/17 Range/Units 13:54 Troponin I < 0.03 (< 0.04) ng/mL Liver Function 08/18/17 Range/Units 13:54 Total Bilirubin 0.7 (0.3-1.0) mg/dL Direct Bilirubin 0.1 (0.0-0.2) mg/dL AST 19 (13-39) Units/L ALT 20 (7-52) Units/L Alkaline Phosphatase 80 (34-104) Units/L Albumin 3.3 L (3.5-5.7) g/dL Urine 08/18/17 Range/Units 13:42 Urine Color Yellow (Yellow) Urine Clarity Clear (Clear) Urine pH 6.0 (5.0-8.0) pH Units Ur Specific [place] 1.015 (1.010-1.025) Urine Protein Negative (Neg-Trace) mg/dL Urine Glucose (UA) Normal (Normal) mg/dL - Impressions ITS Impressions Chest CTA 08/18/17 13:43 IMPRESSION: 1. Acute bilateral pulmonary embolism involving the right lower lobar pulmonary artery in the left lower lobar pulmonary artery. There is no evidence of right ventricular strain. 2. Mucous plugging in the peripheral airways in the right lower lobe and peribronchial thickening and ground-glass attenuation in both lower lobes. These findings may indicate bronchiolitis. Edema or developing pneumonitis cannot be excluded. Critical results were called by Dr. Nazario Zazueta MD to the emergency room physician on 08/18/2017 at 15:48. D/ / Nazario Zazueta MD / Nazario Zazueta MD Interpreting Provider: Nazario Zazueta MD Abdomen/Pelvis CT 08/18/17 13:46 IMPRESSION: Evidence bilateral nephritis, greater on the left. Postsurgical changes of the lower lumbar spine. Right lower lobar segmental pulmonary embolism again demonstrated. Bibasilar airspace disease in bronchial wall thickening is present. Correlation for infectious airways disease is recommended. D/ / Hannah Wu Cha, MD / Hannah Wu Cha, MD Interpreting Provider: Hannah Wu Cha, MD <Jay Jones P - Last Filed: 08/19/17 18:26> Date of Encounter: 08/19/17 Internal Medicine - H&P: HPI History of present illness: Mr. Green is a 57 year old male All Systems PM: A 10-system review of systems was performed and is negative for pertinent findings except as documented above in the HPI. - Constitutional Vitals: Temp Pulse Resp BP Pulse Ox 98.4 F 93 15 155/78 93 08/19/17 15:00 08/19/17 15:00 08/19/17 15:00 08/19/17 15:00 08/19/17 15:00 Internal Med - H&P Results - Labs CBC & Chem 7: 08/19/17 02:43 08/19/17 02:43 - Attending Attestation I examined this patient and my medical decision-making was reviewed with the Resident Physician/[employer]. I agree with the documented findings, disposition and treatment plan as described except to the extent set forth below.
[2017-08-18] MEDS: Heparin 25,000 UNIT/500 ML D5W 25,000 UNIT/500 ML BAG IVC SCH (17:00)
[2017-08-18] MEDS ORDERED: Levofloxacin 750 MG/150 ML 750 MG/150 ML BAG IVPB SCH (17:00)
[2017-08-18] MEDS ORDERED: Ipratropium/Albuterol Neb 3 ML IH ONE (17:44)
[2017-08-18] MEDS: Beclomethasone 40mcg MDI IH SCH (22:35)
[2017-08-18] MEDS: Gabapentin 300 MG CAPSULE PO SCH (22:37)
[2017-08-19 03:48] LABS: Hematocrit 36.8 % (37.5-50.1); Hemoglobin 12.2 g/dL (12.9-16.9); Mean Corpuscular HGB Conc 33.2 g/dL (31.6-35.5); Mean Corpuscular Hemoglobin 29.5 pg (28.0-33.3); Mean Corpuscular Volume 88.9 fL (83.0-100.0); Mean Platelet Volume 10.5 fL (9.4-12.4); Platelet Count 302 K/mcL (140-400); Red Blood Count 4.14 M/mcL (4.19-5.50); Red Cell Distribution Width 12.5 % (11.5-14.5)
[2017-08-19 04:06] LABS: BUN/Creatinine Ratio 18 (6-26); Blood Urea Nitrogen 15 mg/dL (6-20); Calcium 8.6 mg/dL (8.6-10.3); Carbon Dioxide 29 mEq/L (23-29); Chloride 98 mEq/L (98-107); Glucose 123 mg/dL (70-105); Osmolality,Calculated 278 (280-300); Potassium 4.2 mEq/L (3.5-5.1); Sodium 133 mEq/L (136-145); eGFR For African Americans > 60 (> 60); eGFR For Non-African Americans > 60 (> 60)
[2017-08-19 04:55] LABS: Adenovirus Not Detected (Not Detect); Bordetella Pertussis Not Detected (Not Detect); Chlamydophila pneumoniae Not Detected (Not Detect); Coronavirus 229E Not Detected (Not Detect); Coronavirus HKU1 Not Detected (Not Detect); Coronavirus NL63 Not Detected (Not Detect); Coronavirus OC43 Not Detected (Not Detect); Human Metapneumovirus Not Detected (Not Detect); Human Rhinovirus/Enterovirus Not Detected (Not Detect); Influenza A Subtype 2009 H1 Not Detected (Not Detect); Influenza A Untypeable Not Detected (Not Detect); Influenza B Not Detected (Not Detect); Mycoplasma pneumoniae Not Detected (Not Detect); Parainfluenza Virus 1 Not Detected (Not Detect); Parainfluenza Virus 2 Not Detected (Not Detect); Parainfluenza Virus 3 Not Detected (Not Detect); Parainfluenza Virus 4 Not Detected (Not Detect); Respiratory Syncytial Virus Not Detected (Not Detect)
[2017-08-19] MEDS: *HR* Heparin 5,000 UNIT/ML VIAL IVP PRN ×2 (07:19→15:10)
[2017-08-19] MEDS: Gabapentin 300 MG CAPSULE PO SCH ×3 (08:41→21:57)
[2017-08-19] MEDS: Beclomethasone 40mcg MDI IH SCH ×2 (10:15→20:15)
[2017-08-19] MEDS ORDERED: Acetaminophen 325 MG TABLET PO PRN (10:46)
--- NOTE | 2017-08-19 10:49 | Internal Med Progress Note ---
Date of Encounter: 08/19/17 Time of Encounter: 10:47 - Assessment and plan (1) Pulmonary embolism Current Visit: Yes Status: Acute Assessment and plan: Acute pulmonary emboli Continue heparin drip for now, consider either Coumadin or other blood thinner at a later time CT scan of the chest showed 1. . Acute bilateral pulmonary embolism involving the right lower lobar pulmonary artery in the left lower lobar pulmonary artery. There is no evidence of right ventricular strain. 2. Mucous plugging in the peripheral airways in the right lower lobe and peribronchial thickening and ground-glass attenuation in both lower lobes. These findings may indicate bronchiolitis. Edema or developing pneumonitis cannot be excluded. May start Lasix with the possible acute pulmonary edema Qualifiers: Pulmonary embolism type: saddle Chronicity: acute Acute cor pulmonale presence: without acute cor pulmonale Qualified Code(s): I26.92 - Saddle embolus of pulmonary artery without acute cor pulmonale (2) Acute bronchitis and bronchiolitis Current Visit: Yes Status: Acute Assessment and plan: Acute bronchitis and possibly bronchiolitis Continue Levaquin day 2 No steroids for now (3) Tobacco abuse Current Visit: No Status: Chronic Assessment and plan: Smoking cessation counseling (4) COPD (chronic obstructive pulmonary disease) Current Visit: Yes Status: Acute Assessment and plan: No exacerbation May consider steroids if COPD exacerbation develops Qualifiers: COPD type: COPD with acute exacerbation Qualified Code(s): J44.1 - Chronic obstructive pulmonary disease with (acute) exacerbation (5) Status post surgery Current Visit: Yes Status: Acute Assessment and plan: Lumbar stenosis with radiculopathy. S/p L2-5 laminectomy on 08/13/2017. Dr. Polanco. Neurologically intact. Incision without s/sx infection. Cont gabapentin , flexeril and oxycodone for pain. - Subjective Interval history: Complaining of right-sided chest pain while breathing/pleuritic-type, sweating, denies any fevers, no abdominal pain or dysuria, back pain from the surgical procedure, no diarrhea - Constitutional Vitals: Temp Pulse Resp BP Pulse Ox 98.4 F 91 16 140/79 93 08/19/17 06:14 08/19/17 06:14 08/19/17 06:14 08/19/17 06:14 08/19/17 06:14 General appearance: Present: A&O X 3, no acute distress - Head Head exam: Present: atraumatic, normocephalic - Eye Eye exam: Present: PERRL, conjuntiva pink, sclera anicteric Pupils: Present: PERRL Additional comments: Diaphoresis - Neck Neck exam general surgery: Present: supple, trachea midline. Absent: lymphadenopathy - Respiratory Respiratory exam: Present: decreased breath sounds, CTAB. Absent: accessory muscle use, rales, rhonchi, wheezes - Cardiovascular Cardiovascular exam: Present: RRR, +S1, +S2. Absent: diastolic murmur, gallop, rubs, systolic murmur - GI/Abdominal GI/Abdominal exam: Present: normal bowel sounds, soft, no peritoneal signs. Absent: distended, tenderness - Extremities Exam Extremities exam: Present: warm, radial pulses palpable and symmetrical. Absent : calf tenderness, cyanotic, pedal edema - Neurological Exam Neurological exam: Present: CN II-XII intact, oriented X3, no focal deficits. Absent: pronater drift, facial droop, speech deficit - Skin Skin exam: Present: dry, intact Additional comments: Lumbar surgical wound without signs of hematoma or infection Internal Medicine: Result - Labs CBC & Chem 7: 08/19/17 02:43 08/19/17 02:43 Labs: Short CBC 08/19/17 Range/Units 02:43 WBC 8.7 (4.3-11.1) K/mcL Hgb 12.2 L (12.9-16.9) g/dL Hct 36.8 L (37.5-50.1) % Plt Count 302 (140-400) K/mcL [facility] 08/19/17 02:43 Sodium 133 L Potassium 4.2 Chloride 98 Carbon Dioxide 29 BUN 15 Creatinine 0.82 Glucose 123 H Calcium 8.6 - ABG Interpretation ABG results: PT/INR, D-dimer PT 12.8 Seconds (9.4-12.1) H 08/18/17 13:57 Consult Discharge Plan - Plan Referrals: Rito Hurst MD [Primary Care Provider] -
[2017-08-19] MEDS: Furosemide 20 MG/2 ML VIAL IVP SCH (11:04)
[2017-08-19] MEDS: Heparin 25,000 UNIT/500 ML D5W 25,000 UNIT/500 ML BAG IVC SCH (13:16)
--- NOTE | 2017-08-19 13:49 | Electrocardiograph Report ---
[place] [id number] Test Date: 2017-08-18 Pat Name: Juancarlos Green Department: 102 Room: 2NE22 Gender: M Telephone Solicitor: Jarred : 1960 Requested By: Darrell Hager Order Number: [id number] Reading MD: Odalys Everett Measurements Intervals [place] Rate: 87 P: 69 CA: 121 QRS: -11 QRSD: 89 T: 131 QT: 340 QTc: 384 Interpretive Statements SINUS RHYTHM MODERATE T-WAVE ABNORMALITY, CONSIDER LATERAL ISCHEMIA [-0.1+ mV T WAVE IN I/aVL/V5/V6] Electronically Signed On 08-19-2017 13:47:36 EST by Odalys Everett
--- NOTE | 2017-08-19 15:44 | Spine Progress Note ---
Date of Encounter: 08/19/17 Time of Encounter: 15:40 Subjective Principal diagnosis: Status post laminectomy, pulmonary embolism Interval history: 57-year-old male well known to my practice who is status post recent laminectomy L2-L5. Patient apparently had some pleuritic symptoms over the weekend and workup revealed bilateral pulmonary embolism. He is currently being anticoagulated. He is afebrile, vital signs stable. Incision is well approximated. He is neurovascularly intact with regard to his bilateral lower extremities. Impression: 1) status post laminectomy 2) bilateral pulmonary embolism Plan: From my standpoint is satisfactory proceed with any anticoagulation methods needed to treat his pulmonary embolism. I have no significant concerns for excessive the spinal bleeding, and we will monitor for clinical signs of neurologic compromise should they occur. Patient can follow-up in my office as scheduled within the next 2 weeks. Objective Vital signs: Intake and Output 08/18/17 08/19/17 08/19/17 23:59 07:59 15:59 Intake Total 556 / 1036 Output Total 1225 / 1725 Balance -669 / -689 Intake: IV Fluids 556 / 556 Heparin 25,000 UNIT/500 ML D5W 556 / 556 25,000 unit In 500 ml @ 14 UNIT /KG/HR 19.559 mls/hr IVC .Q24H GRACE Rx#:[id number] Output: Urine 1225 / 1725 - Labs CBC & BMP: 08/19/17 02:43 08/19/17 02:43 Labs: Abnormal lab results RBC 4.14 M/mcL (4.19-5.50) L 08/19/17 02:43 Hgb 12.2 g/dL (12.9-16.9) L 08/19/17 02:43 Hct 36.8 % (37.5-50.1) L 08/19/17 02:43 PT 12.8 Seconds (9.4-12.1) H 08/18/17 13:57 APTT 49.2 Seconds (26.0-36.0) H 08/19/17 13:10 Sodium 133 mEq/L (136-145) L 08/19/17 02:43 Glucose 123 mg/dL (70-105) H 08/19/17 02:43 Calculated Osmolality 278 (280-300) L 08/19/17 02:43 Albumin 3.3 g/dL (3.5-5.7) L 08/18/17 13:54 Globulin 4.0 g/dL (2.4-3.5) H 08/18/17 13:54 Albumin/Globulin Ratio 0.8 (1.1-2.2) L 08/18/17 13:54 Lipase 10 Units/L (11-82) L 08/18/17 13:54 Consult Discharge Plan - Plan Referrals: Rito Hurst MD [Primary Care Provider] -
[2017-08-19] MEDS ORDERED: *HR* OxyCODONE Immed Rel 5 MG TABLET PO PRN (15:45)
[2017-08-19] MEDS: *HR* OxyCODONE Immed Rel 5 MG TABLET PO PRN ×2 (16:21→22:02)
[2017-08-19] MEDS: Levofloxacin 750 MG/150 ML 750 MG/150 ML BAG IVPB SCH (21:57)
[2017-08-20] MEDS: *HR* Heparin 5,000 UNIT/ML VIAL IVP PRN ×2 (01:02→09:45)
[2017-08-20] MEDS: *HR* OxyCODONE Immed Rel 5 MG TABLET PO PRN ×4 (05:09→19:26)
[2017-08-20] MEDS: Albuterol 2.5 MG/3 ML NEBULIZER IH PRN ×2 (05:26→19:43)
[2017-08-20] MEDS: Heparin 25,000 UNIT/500 ML D5W 25,000 UNIT/500 ML BAG IVC SCH (06:14)
[2017-08-20] MEDS: Beclomethasone 40mcg MDI IH SCH ×2 (08:01→19:43)
[2017-08-20 08:39] LABS: Hematocrit 42.2 % (37.5-50.1); Hemoglobin 14.1 g/dL (12.9-16.9); Mean Corpuscular HGB Conc 33.4 g/dL (31.6-35.5); Mean Corpuscular Hemoglobin 29.6 pg (28.0-33.3); Mean Corpuscular Volume 88.5 fL (83.0-100.0); Platelet Count 353 K/mcL (140-400); Red Blood Count 4.77 M/mcL (4.19-5.50); Red Cell Distribution Width 12.7 % (11.5-14.5)
[2017-08-20 08:54] LABS: BUN/Creatinine Ratio 14 (6-26); Blood Urea Nitrogen 14 mg/dL (6-20); Calcium 9.3 mg/dL (8.6-10.3); Carbon Dioxide 29 mEq/L (23-29); Chloride 93 mEq/L (98-107); Glucose 136 mg/dL (70-105); Osmolality,Calculated 275 (280-300); Potassium 4.4 mEq/L (3.5-5.1); Sodium 131 mEq/L (136-145); eGFR For African Americans > 60 (> 60); eGFR For Non-African Americans > 60 (> 60)
--- NOTE | 2017-08-20 09:13 | Internal Med Progress Note ---
<Dong Quinteros - Last Filed: 08/20/17 13:28> Date of Encounter: 08/20/17 Time of Encounter: 09:05 - Assessment and plan (1) Pulmonary embolism Current Visit: Yes Status: Acute Assessment and plan: Post-op Day 4 patient developed SOB w/ calf pain. In ED, patient was found to have Acute bilateral pulmonary emboli correlated with CT chest. Currently hemodynamically stable, and symptomatically improving. - continue heparin drip for now, start PO anti-coag today - IS q1hr, ambulate with assistance TID. PT consulted for first ambulation - consider lasix with possible acute pulmonary edema Qualifiers: Pulmonary embolism type: saddle Chronicity: acute Acute cor pulmonale presence: without acute cor pulmonale Qualified Code(s): I26.92 - Saddle embolus of pulmonary artery without acute cor pulmonale (2) Acute bronchitis and bronchiolitis Current Visit: Yes Status: Acute Assessment and plan: Acute bronchitis and possibly bronchiolitis - Continue Levaquin day 3 - if resp symptoms decline, will start steroids. (3) COPD (chronic obstructive pulmonary disease) Current Visit: Yes Status: Acute Assessment and plan: No exacerbation - consider steroids if COPD exacerbation develops Qualifiers: COPD type: COPD with acute exacerbation Qualified Code(s): J44.1 - Chronic obstructive pulmonary disease with (acute) exacerbation (4) DVT prophylaxis Current Visit: Yes Status: Acute Assessment and plan: on heparin (5) Status post surgery Current Visit: Yes Status: Acute Assessment and plan: Lumbar stenosis with radiculopathy. S/p L2-5 laminectomy on 08/13/2017. Dr. Polanco. Neurologically intact. Incision without s/sx infection. Cont gabapentin , flexeril and oxycodone for pain. (6) Tobacco abuse Current Visit: No Status: Chronic Assessment and plan: Smoking cessation counseling - Subjective Interval history: 57 yo M COPD and recent laminectomy L2-L5 w/ Dr. Polanco on 08/13/17 presented to [facility] with SOB that started on Saturday. Today patient reports feeling tired, but denies SOB, chest pain or leg pain - Constitutional Vitals: Temp Pulse Resp BP Pulse Ox 100.1 F H 92 18 151/90 91 08/20/17 07:44 08/20/17 07:44 08/20/17 08:03 08/20/17 07:44 08/20/17 08:03 General appearance: Present: A&O X 3, no acute distress - Neck Neck exam general surgery: Present: supple, trachea midline. Absent: lymphadenopathy - Respiratory Respiratory exam: Present: CTAB. Absent: accessory muscle use, rales, rhonchi, wheezes - Cardiovascular Cardiovascular exam: Present: RRR, +S1, +S2. Absent: diastolic murmur, gallop, rubs, systolic murmur - Expanded Lower Extremities Exam Lower Leg exam: Present: normal inspection. Absent: Jonas's sign, palpable cord , swelling, tenderness Internal Medicine: Result - Labs CBC & Chem 7: 08/20/17 08:22 08/20/17 08:22 Labs: Short CBC 08/20/17 Range/Units 08:22 WBC 12.1 H (4.3-11.1) K/mcL Hgb 14.1 D (12.9-16.9) g/dL Hct 42.2 (37.5-50.1) % Plt Count 353 (140-400) K/mcL BMP 08/20/17 08:22 Sodium 131 L Potassium 4.4 Chloride 93 L Carbon Dioxide 29 BUN 14 Creatinine 0.99 Glucose 136 H Calcium 9.3 - ABG Interpretation ABG results: PT/INR, D-dimer PT 12.8 Seconds (9.4-12.1) H 08/18/17 13:57 Consult Discharge Plan - Plan Referrals: Rito Hurst MD [Primary Care Provider] - Prescriptions: Apixaban [Eliquis] 5 mg PO AD #74 tablet <Alvin Lange - Last Filed: 08/20/17 18:03> Date of Encounter: 08/20/17 - Assessment and plan (1) Pulmonary embolism Current Visit: Yes Status: Acute Qualifiers: Pulmonary embolism type: saddle Chronicity: acute Acute cor pulmonale presence: without acute cor pulmonale Qualified Code(s): I26.92 - Saddle embolus of pulmonary artery without acute cor pulmonale (2) Pleuritic chest pain Current Visit: Yes Status: Acute (3) Tobacco abuse Current Visit: No Status: Chronic (4) COPD (chronic obstructive pulmonary disease) Current Visit: Yes Status: Acute Qualifiers: COPD type: COPD with acute exacerbation Qualified Code(s): J44.1 - Chronic obstructive pulmonary disease with (acute) exacerbation (5) Acute bronchitis and bronchiolitis Current Visit: Yes Status: Acute - Constitutional Vitals: Temp Pulse Resp BP Pulse Ox 98.0 F 98 18 142/88 95 08/20/17 15:03 08/20/17 15:03 08/20/17 15:03 08/20/17 15:03 08/20/17 17:56 Internal Medicine: Result - Labs CBC & Chem 7: 08/20/17 08:22 08/20/17 08:22 Labs: Short CBC 08/20/17 Range/Units 08:22 WBC 12.1 H (4.3-11.1) K/mcL Hgb 14.1 D (12.9-16.9) g/dL Hct 42.2 (37.5-50.1) % Plt Count 353 (140-400) K/mcL BMP 08/20/17 08:22 Sodium 131 L Potassium 4.4 Chloride 93 L Carbon Dioxide 29 BUN 14 Creatinine 0.99 Glucose 136 H Calcium 9.3 - ABG Interpretation ABG results: PT/INR, D-dimer PT 12.8 Seconds (9.4-12.1) H 08/18/17 13:57 - Attending Attestation I examined this patient and my medical decision-making was reviewed with the Resident Physician on 08/20/17. I agree with the documented findings, disposition and treatment plan as described except to the extent set forth below. Mr Green is currently admitted for acute bilateral PE. He remains moderate to high risk due to potential for worsening clinical status. Mr Green is having a lot of pleuritic pain on the R. No fever or chills. No significant dyspnea. Feels weak overall. Exam Alert Mod distress due to pain Mucus membranes moist Heart reg No wheeze. Diminished on R Abd soft I/P 1. Bilateral PE - start Eliquis today 2. Pain pleuritic Further diagnoses and plan as above.
[2017-08-20] MEDS: Furosemide 20 MG/2 ML VIAL IVP SCH (09:47)
[2017-08-20] MEDS: Gabapentin 300 MG CAPSULE PO SCH ×3 (09:47→21:25)
[2017-08-20] MEDS ORDERED: *HR* Warfarin 1 MG TABLET PO SCH (18:00)
[2017-08-20] MEDS: Apixaban 5 MG TABLET PO SCH (21:25)
[2017-08-20] MEDS: Levofloxacin 750 MG/150 ML 750 MG/150 ML BAG IVPB SCH (21:26)
[2017-08-21 05:40] LABS: Basophils # 0.1 K/mcL (0.0-0.2); Basophils % 0.6 %; Eosinophils # 0.1 K/mcL (0.0-0.6); Eosinophils % 0.5 %; Hematocrit 37.8 % (37.5-50.1); Hemoglobin 12.7 g/dL (12.9-16.9); Immature Granulocytes % 1.9 % (0-4); Lymphocytes # 1.1 K/mcL (0.6-4.6); Lymphocytes % 9.4 %; Mean Corpuscular HGB Conc 33.6 g/dL (31.6-35.5); Mean Corpuscular Hemoglobin 29.3 pg (28.0-33.3); Mean Corpuscular Volume 87.3 fL (83.0-100.0); Mean Platelet Volume 10.5 fL (9.4-12.4); Monocytes # 1.8 K/mcL (0.0-1.3); Monocytes % 15.4 %; Neutrophils # 8.3 K/mcL (1.6-8.9); Platelet Count 310 K/mcL (140-400); Red Blood Count 4.33 M/mcL (4.19-5.50); Red Cell Distribution Width 12.6 % (11.5-14.5); Segmented Neutrophils % 72.2 %
[2017-08-21 05:53] LABS: BUN/Creatinine Ratio 16 (6-26); Blood Urea Nitrogen 15 mg/dL (6-20); Carbon Dioxide 30 mEq/L (23-29); Chloride 93 mEq/L (98-107); Glucose 126 mg/dL (70-105); Osmolality,Calculated 268 (280-300); Potassium 4.3 mEq/L (3.5-5.1); Sodium 128 mEq/L (136-145); eGFR For African Americans > 60 (> 60); eGFR For Non-African Americans > 60 (> 60)
[2017-08-21 07:19] VITALS: BP 130/80
[2017-08-21] MEDS: *HR* OxyCODONE Immed Rel 5 MG TABLET PO PRN ×2 (07:47→15:07)
[2017-08-21] MEDS: Gabapentin 300 MG CAPSULE PO SCH ×2 (07:47→15:07)
[2017-08-21] MEDS: Apixaban 5 MG TABLET PO SCH (07:47)
[2017-08-21] MEDS: Furosemide 20 MG/2 ML VIAL IVP SCH (07:48)
[2017-08-21] MEDS: Beclomethasone 40mcg MDI IH SCH (07:59)
--- NOTE | 2017-08-21 11:43 | Discharge Summary ---
<AldairDong - Last Filed: 08/21/17 14:08> Date of Encounter: 08/21/17 Time of Encounter: 11:41 - Discharge Diagnosis (1) Pulmonary embolism Priority: Primary Status: Acute Qualifiers: Pulmonary embolism type: saddle Chronicity: acute Acute cor pulmonale presence: without acute cor pulmonale Qualified Code(s): I26.92 - Saddle embolus of pulmonary artery without acute cor pulmonale (2) Acute bronchitis and bronchiolitis Priority: Secondary Status: Acute (3) COPD (chronic obstructive pulmonary disease) Priority: Secondary Status: Acute Qualifiers: COPD type: COPD with acute exacerbation Qualified Code(s): J44.1 - Chronic obstructive pulmonary disease with (acute) exacerbation (4) DVT prophylaxis Priority: Secondary Status: Acute (5) Status post surgery Priority: Secondary Status: Acute (6) Tobacco abuse Priority: Secondary Status: Chronic - Discharge Medications Prescriptions: Apixaban [Eliquis] 5 mg PO AD #74 tablet Home Medications: Albuterol Sulfate [Proair Hfa] 2 puff IH Q4H PRN 10/29/16 [History] Beclomethasone Diprop 40mcg [QVAR 40 mcg] 1 puff IH BID 10/29/16 [History] Cyclobenzaprine [Flexeril] 10 mg PO HS PRN 10/29/16 [History] Gabapentin [Neurontin] 600 mg PO TID 10/29/16 [History] Meloxicam [Mobic] 15 mg PO DAILY 10/29/16 [History] Albuterol Neb [Proventil Neb] 2.5 mg IH Q4H PRN 08/13/17 [History] Aspirin [Lo-Dose Aspirin EC] 81 mg PO DAILY 08/13/17 [History] OxyCODONE Immed Rel [Roxicodone 5 MG] 5 mg PO Q6HR PRN #30 tablet 08/14/17 [Rx] Apixaban [Eliquis] 5 mg PO AD #74 tablet 08/20/17 [Rx] Allergies/Adverse Reactions: 3 Allergy/AdvReac Type Severity Reaction Status Date / Time Sulfa (Sulfonamide Allergy Hives Verified 08/18/17 13:25 Antibiotics) Date of admission: 08/19/17 11:42 Primary care physician: Rito Hurst Consults: 08/19/17 13:22 Consult to Internet Sales Director [CONS] Routine Reason for SW Consult: POA paperwork 08/19/17 13:24 Consult to Physical Therapy [CONS] Routine Comment: Evaluate, develop and implement POC Reason for Consult: Evaluate for possible therapy needs at discharge; s/p lamenectomy on 08/13/17 08/19/17 13:32 Consult to Occupational Therapy [CONS] Routine Comment: Evaluate, develop and implement POC Reason for Consult: Evaluate for possible therapy needs at discharge; s/p lamenectomy on 08/13/17 08/20/17 09:01 Consult to Physical Therapy [CONS] Routine Comment: Evaluate, develop and implement POC Reason for Consult: help up to walk first time - Patient Status Disposition: Home, Self-Care Condition: Fair Functional capacity at discharge: independent ambulation Overall status at discharge: patient is progressing back to baseline - Discharge Instructions Instructions: Apixaban (By mouth), Asthma (DC), Pulmonary Embolism (DC), Chronic Obstructive Pulmonary Disease (DC) Follow Up With: Rito Hurst MD [Primary Care Provider] - 08/21/17 10:00 am Eliazar Polanco Jr, MD [Partnered Physician] - 08/27/17 10:00 am - Diet and Activity Activity: increase activity as tolerated Diet: advance to your usual diet Hospital course: Mr. Green is a 57 year old male with PMHx COPD and recent back surgery who presented to [facility] on 08/18/2017 with complaints of right -sided pleuritic chest pain. Patient had laminectomy L2-L5 w/ Dr. Polanco on 08/13/17. On 08/16/17 patient developed calf pain, and on the patient developed SOB. Patient presented without chest pain, but with SOB and slightly tachcardic. Patient was started on heparin. CTA chest was suggestive of Bilateral PE. EKG showed patient was in sinus rhythm. Patient was started on lovenox. Patient to stay on lovenox for 3 months, and advised to increase physical activity and ambulation at home as well as usage of incentive spirometry. Patient to have follow up with PCP and Dr. Polanco within one week of discharge. Time spent discussing smoking cessation with patient: more than 10 minutes - Time Spent with Patient Total time spent providing and/or coordinating discharge services: Greater than 30 minutes - Constitutional Vitals: Temp Pulse Resp BP Pulse Ox 98.3 F 86 18 130/80 93 08/21/17 07:15 08/21/17 07:15 08/21/17 08:00 08/21/17 07:15 08/21/17 08:00 General appearance: Present: A&O X 3, no acute distress - Respiratory Respiratory exam: Present: CTAB. Absent: accessory muscle use, rales, rhonchi, wheezes - Cardiovascular Cardiovascular exam: Present: RRR, +S1, +S2. Absent: diastolic murmur, gallop, rubs, systolic murmur - Extremities Exam Extremities exam: Present: warm, radial pulses palpable and symmetrical. Absent : calf tenderness, cyanotic, pedal edema - Psychiatric Psychiatric exam: Present: normal affect, normal mood <Alvin Lange - Last Filed: 08/21/17 19:36> Date of Encounter: 08/21/17 - Discharge Diagnosis (1) Pulmonary embolism Status: Acute Qualifiers: Pulmonary embolism type: saddle Chronicity: acute Acute cor pulmonale presence: without acute cor pulmonale Qualified Code(s): I26.92 - Saddle embolus of pulmonary artery without acute cor pulmonale (2) Pleuritic chest pain Status: Acute (3) Tobacco abuse Status: Chronic (4) COPD (chronic obstructive pulmonary disease) Status: Acute Qualifiers: COPD type: COPD with acute exacerbation Qualified Code(s): J44.1 - Chronic obstructive pulmonary disease with (acute) exacerbation (5) Acute bronchitis and bronchiolitis Status: Acute Date of admission: 08/19/17 11:42 Primary care physician: Rito Hurst Consults: 08/19/17 13:22 Consult to Internet Sales Director [CONS] Routine Reason for SW Consult: POA paperwork 08/19/17 13:24 Consult to Physical Therapy [CONS] Routine Comment: Evaluate, develop and implement POC Reason for Consult: Evaluate for possible therapy needs at discharge; s/p lamenectomy on 08/13/17 08/19/17 13:32 Consult to Occupational Therapy [CONS] Routine Comment: Evaluate, develop and implement POC Reason for Consult: Evaluate for possible therapy needs at discharge; s/p lamenectomy on 08/13/17 08/20/17 09:01 Consult to Physical Therapy [CONS] Routine Comment: Evaluate, develop and implement POC Reason for Consult: help up to walk first time Hospital course: Mr. Green is a 57 year old male - Time Spent with Patient Total time spent providing and/or coordinating discharge services: - Constitutional Vitals: Temp Pulse Resp BP Pulse Ox 98.3 F 89 16 130/80 94 08/21/17 07:15 08/21/17 15:05 08/21/17 15:05 08/21/17 07:15 08/21/17 15:05 - Attending Attestation I examined this patient and my medical decision-making was reviewed with the Resident Physician on 08/21/17. I agree with the documented findings, disposition and treatment plan as described except to the extent set forth below. Mr Green has been hospitalized for acute PE. He is now afebrile with stable vitals. Pain is controlled. He is ready for discharge home. Exam alert. Comfortable Mucus membranes dry Heart reg No wheeze Plan d/c home today.
[2017-08-21] MEDS ORDERED: FLUARIX QUAD 2017-18 36MOS UP/PF 0.5 ML SYRINGE IM ONE (15:18)
[2017-08-21] MEDS ORDERED: levoFLOXacin 750 MG TABLET PO SCH (21:00)
[2017-08-21] MEDS ORDERED: Apixaban 5 MG TABLET PO SCH (21:00)
== END 2017-08-21 16:00 | disposition home or self-care (01) | DRG 134 ==
LOC: 2NENU 13:22 → EMEROO 13:22 → 2NENU 19:11 → SUATTDRO 08-19 11:42
PROVIDERS: ADMIT Internal Medicine; ATTEND Internal Medicine

== ENCOUNTER 2017-09-09 19:09 | Inpatient (IN) ==
--- NOTE | 2017-09-09 19:12 | Emergency Department Note ---
Disposition Clinical Impression: COPD (chronic obstructive pulmonary disease), HCAP (healthcare-associated pneumonia), Sepsis Disposition: Admitted As Inpatient Condition: Serious General Adult HPI - General Chief complaint: ED Chest Pain Stated complaint: chest pain Time Seen by Provider: 09/09/17 19:11 - Related Data Home Medications Medication Instructions Recorded Confirmed Albuterol Sulfate [Proair Hfa] 2 puff IH Q4H PRN 10/29/16 09/09/17 Cyclobenzaprine [Flexeril] 10 mg PO HS PRN 10/29/16 09/09/17 Gabapentin [Neurontin] 600 mg PO TID 10/29/16 09/09/17 Meloxicam [Mobic] 15 mg PO DAILY 10/29/16 09/09/17 Albuterol Neb [Proventil Neb] 2.5 mg IH Q4H PRN 08/13/17 09/09/17 Apixaban [Eliquis] 5 mg PO BID 09/09/17 09/09/17 Beclomethasone Diprop 80mcg [QVAR 1 puff IH BID 09/09/17 09/09/17 80 mcg] Omeprazole [PriLOSEC] 20 mg PO DAILY 09/09/17 09/09/17 Allergies Allergy/AdvReac Type Severity Reaction Status Date / Time Sulfa (Sulfonamide Allergy Hives Verified 08/18/17 13:25 Antibiotics) Past Medical History - Past Medical History Medical history: Reports: arthritis, asthma, COPD, hypertension Surgical history: Reports: hip replacement Psychiatric history: Reports: no psych history - Social History Smoking Status: Current every day smoker Smokeless Tobacco Status: No Alcohol use: Reports: occasionally Drug use: Reports: marijuana Course Vital Signs Temperature 99.9 F H 09/09/17 19:13 Pulse Rate 110 09/09/17 19:13 Respiratory Rate 16 09/09/17 19:13 Blood Pressure 146/78 09/09/17 19:13 O2 Sat by Pulse Oximetry 92 09/09/17 19:13 Temperature 99.9 F H 09/09/17 19:13 Pulse Rate 95 09/09/17 20:54 Respiratory Rate 16 09/09/17 20:54 Blood Pressure 135/83 09/09/17 20:54 O2 Sat by Pulse Oximetry 98 09/09/17 20:54 Oxygen Delivery Oxygen Delivery Aerosol Mask Medical Decision Making - Lab Data Result diagrams: 09/09/17 19:26 09/09/17 19:26 Lab Results 09/09/17 09/09/17 09/09/17 Range/Units 19:26 19: 19:26 WBC 12.4 H (4.3-11.1) K/mcL RBC 4.56 (4.19-5.50) M/mcL Hgb 12.7 L (12.9-16.9) g/dL Hct 38.9 (37.5-50.1) % MCV 85.3 (83.0-100.0) fL MCH 27.9 L (28.0-33.3) pg MCHC 32.6 (31.6-35.5) g/dL RDW 13.1 (11.5-14.5) % Plt Count 460 H (140-400) K/mcL MPV 9.7 (9.4-12.4) fL Immature Gran % 1.8 (0-4) % Seg Neutrophils % 73.0 % Lymphocytes % 9.6 % Monocytes % 7.4 % Eosinophils % 7.6 % Basophils % 0.6 % Neutrophils # 9.1 H (1.6-8.9) K/mcL Lymphocytes # 1.2 (0.6-4.6) K/mcL Monocytes # 0.9 (0.0-1.3) K/mcL Eosinophils # 1.0 H (0.0-0.6) K/mcL Basophils # 0.1 (0.0-0.2) K/mcL Sodium 132 L (136-145) mEq/L Potassium 4.1 (3.5-5.1) mEq/L Chloride 99 (98-107) mEq/L Carbon Dioxide 26 (23-29) mEq/L BUN 13 (6-20) mg/dL Creatinine 0.74 (0.70-1.30) mg/dL Est GFR ( Amer) > 60 (> 60) Est GFR (Non-Af Amer) > 60 (> 60) BUN/Creatinine Ratio 18 (6-26) Glucose 155 H (70-105) mg/dL Calculated Osmolality 277 L (280-300) Calcium 8.9 (8.6-10.3) mg/dL Troponin I < 0.03 (< 0.04) ng/mL Attestation Statement - Attestation Attestation: I examined this patient and my medical decision-making was reviewed with the Resident Physician. I agree with the documented findings, disposition and treatment plan as described except to the extent set forth below. [id number] time provided Patient arrives by ambulance from home complaining of chest discomfort, cough, dyspnea. He also has some back pain. He does not appear in any acute distress on exam. I evaluated this patient upon his arrival to the treatment area. He was evaluated in conjunction with the resident physician Dr. Do. ECG reviewed by me 20:20: Meets sepsis criteria. 30 mL per KG of IV fluids not administered because the patient is not hypotensive. Broad spectrum antibiotics initiated for healthcare associated pneumonia since the patient was hospitalized within the past 1 month. The hospitalist has evaluated the patient in the emergency department. Stable for admission
[2017-09-09] MEDS ORDERED: *HR* FentaNYL (PF) 100 MCG/2 ML VIAL IVP ONE (19:35)
[2017-09-09] MEDS ORDERED: methylPREDNISolone 125 MG/2 ML VIAL IVP ONE (19:35)
[2017-09-09] MEDS ORDERED: 0.9 % Sodium Chloride 1,000 ML IVC ONE (19:35)
[2017-09-09] MEDS ORDERED: Ketorolac 15 MG/ML VIAL IVP ONE (19:35)
[2017-09-09] MEDS ORDERED: Ipratropium/Albuterol Neb 3 ML IH ONE (19:35)
--- NOTE | 2017-09-09 19:44 | Emergency Department Note ---
Disposition Clinical Impression: HCAP (healthcare-associated pneumonia) COPD (chronic obstructive pulmonary disease) Qualifiers: COPD type: COPD with acute exacerbation Qualified Code(s): J44.1 - Chronic obstructive pulmonary disease with (acute) exacerbation Sepsis Qualifiers: Sepsis type: sepsis due to unspecified organism Qualified Code(s): A41.9 - Sepsis, unspecified organism Disposition: Admitted As Inpatient Condition: Serious Referrals: Rito Hurst MD [Primary Care Provider] - Forms: ED Satisfaction Letter Time of Disposition: 20:40 Chest Pain HPI - General Chief Complaint: ED Chest Pain Stated Complaint: chest pain Time Seen by Provider: 09/09/17 19:11 Source: patient Limitations: no limitations Vital Signs Reviewed: Yes Nursing Notes Reviewed: Yes - History of Present Illness HPI Narrative: 57-year-old male complains of worsening chest wall pain of the right lateral chest wall with radiation to his right shoulder 2 days ago. Patient states he has been coughing excessively secondary to having COPD and recent diagnosis of PE times one month ago. Patient had surgery on his spine by Dr. Polanco spinal surgeon and then tested positive for PE several days later. Patient is currently on eloquis. He states that his pain symptoms initially went away but his coughing has persisted. Patient states he has bouts of coughing that lead to vomiting and also has abdominal muscle pain as well. Patient denies any hemoptysis. Severity scale (1-10): 8 - Related Data Home Medications Medication Instructions Recorded Confirmed Albuterol Sulfate [Proair Hfa] 2 puff IH Q4H PRN 10/29/16 08/18/17 Cyclobenzaprine [Flexeril] 10 mg PO HS PRN 10/29/16 08/18/17 Gabapentin [Neurontin] 600 mg PO TID 10/29/16 08/18/17 Meloxicam [Mobic] 15 mg PO DAILY 10/29/16 08/18/17 Albuterol Neb [Proventil Neb] 2.5 mg IH Q4H PRN 08/13/17 08/18/17 Apixaban [Eliquis] 5 mg PO BID 09/09/17 09/09/17 Beclomethasone Diprop 80mcg [QVAR 1 puff IH BID 09/09/17 09/09/17 80 mcg] Omeprazole [PriLOSEC] 20 mg PO DAILY 09/09/17 09/09/17 Allergies Allergy/AdvReac Type Severity Reaction Status Date / Time Sulfa (Sulfonamide Allergy Hives Verified 08/18/17 13:25 Antibiotics) All systems ED: reviewed and negative except as stated. Review of Systems: As Per HPI Constitutional: Denies: fever, chills Cardiovascular: Reports: chest pain. Denies: palpitations Respiratory: Reports: cough, dyspnea, wheezes. Denies: hemoptysis Gastrointestinal: Reports: nausea, vomiting. Denies: abdominal pain, diarrhea Chest Pain PMH - Past Medical History Medical history: Reports: arthritis, asthma, COPD, hypertension, pulmonary embolus Surgical history: Reports: hip replacement Psychiatric history: Reports: no psych history - Social History Smoking Status: Current every day smoker Alcohol use: Reports: occasionally Drug use: Reports: marijuana Physical Exam Vital Signs Temperature 99.9 F H 09/09/17 19:13 Pulse Rate 110 09/09/17 19:13 Respiratory Rate 16 09/09/17 19:13 Blood Pressure 146/78 09/09/17 19:13 O2 Sat by Pulse Oximetry 92 09/09/17 19:13 Temperature 99.9 F H 09/09/17 19:13 Pulse Rate 110 09/09/17 19:13 Respiratory Rate 16 09/09/17 19:13 Blood Pressure 146/78 09/09/17 19:13 O2 Sat by Pulse Oximetry 92 09/09/17 19:13 Oxygen Delivery Oxygen Delivery Room Air CONSTITUTIONAL: Alert and oriented X3, well-nourished, well appearing, in no apparent distress HEAD: Normocephalic; atraumatic. EYES: PERRL, no scleral icterus. NOSE: The nose is normal in appearance without rhinorrhea RESP: Normal chest excursion with respiration; breath sounds with bilateral wheezing Chest: Patient has reproducible tenderness or lateral right side chest wall. CARD: Regular rhythm, without murmurs, rub or gallop ABD: Non-distended; abdominal muscular tenderness to palpation, soft,without rigidity, rebound or guarding SKIN: Normal for age and race; warm and dry; no apparent lesions - General Limitations: no limitations General appearance: alert, in no apparent distress Course - Reevaluation(s) Reevaluation #1: Chest x-ray shows pneumonia EMS a source of infection with patient being an SIRS positive. Cultures, lactic acid and repeat lactic acid, antibiotics order to cover for HCAP, consisting of levofloxacin, Achromycin and Zosyn. IV fluids 3 L ordered Time: 20:19 Vital Signs Temperature 99.9 F H 09/09/17 19:13 Pulse Rate 110 09/09/17 19:13 Respiratory Rate 16 09/09/17 19:13 Blood Pressure 146/78 09/09/17 19:13 O2 Sat by Pulse Oximetry 92 09/09/17 19:13 Temperature 99.9 F H 09/09/17 19:13 Pulse Rate 110 09/09/17 19:13 Respiratory Rate 20 09/09/17 20:00 Blood Pressure 146/78 09/09/17 19:13 O2 Sat by Pulse Oximetry 98 09/09/17 20:00 Oxygen Delivery Oxygen Delivery Room Air Chest Pain - MDM Narrative Medical decision making narrative: Patient presents with chest wall pain or discomfort or worsening breathing symptoms over the past 2 days concerning for COPD exacerbation with history of COPD. Patient has reproducible chest wall pain which she admits that it is the full extent of his chest pain symptoms. Given patient's recent diagnosis of PE , I ordered CBC, BMP and troponin to check for any cardiac involvement, and electrolyte abnormalities. Chest x-ray taken to look for signs of pneumonia. DuoNeb therapy ordered, Solu-Medrol ordered, aspirin ordered 2032 hrs: Upon reevaluation patient is doing well but review of patient's x-ray shows right lower lung opacity for diagnosis of pneumonia. With recent hospitalization last month and patient be an SIRS positive, patient will need to be started on antibiotics including Levaquin, Zosyn, and vancomycin to cover for HCAP. The necessary cultures and lactic acid have been ordered to be taken before initiation of antibiotic therapy. Patient will be admitted to the hospital. Patient understands and agrees to admittance Flu flu antigen tests ordered Dr. Najera the hospitalist has accepted patient for admission to a telemetry bed. - Lab Data Lab results reviewed: Yes I reviewed the patient's lab results. Lab results narrative: Short CBC 09/09/17 Range/Units 19:26 WBC 12.4 H (4.3-11.1) K/mcL Hgb 12.7 L (12.9-16.9) g/dL Hct 38.9 (37.5-50.1) % Plt Count 460 H (140-400) K/mcL Neutrophils # 9.1 H (1.6-8.9) K/mcL BMP 09/09/17 Range/Units 19:26 Sodium 132 L (136-145) mEq/L Potassium 4.1 (3.5-5.1) mEq/L Chloride 99 (98-107) mEq/L Carbon Dioxide 26 (23-29) mEq/L BUN 13 (6-20) mg/dL Creatinine 0.74 (0.70-1.30) mg/dL Glucose 155 H (70-105) mg/dL Calcium 8.9 (8.6-10.3) mg/dL Cardiac Enzymes 09/09/17 Range/Units 19:26 Troponin I < 0.03 (< 0.04) ng/mL Result diagrams: 09/09/17 19:26 09/09/17 19:26 Lab Results 09/09/17 09/09/17 09/09/17 Range/Units 19:26 19:26 19:26 WBC 12.4 H (4.3-11.1) K/mcL RBC 4.56 (4.19-5.50) M/mcL Hgb 12.7 L (12.9-16.9) g/dL Hct 38.9 (37.5-50.1) % MCV 85.3 (83.0-100.0) fL MCH 27.9 L (28.0-33.3) pg MCHC 32.6 (31.6-35.5) g/dL RDW 13.1 (11.5-14.5) % Plt Count 460 H (140-400) K/mcL MPV 9.7 (9.4-12.4) fL Immature Gran % 1.8 (0-4) % Seg Neutrophils % 73.0 % Lymphocytes % 9.6 % Monocytes % 7.4 % Eosinophils % 7.6 % Basophils % 0.6 % Neutrophils # 9.1 H (1.6-8.9) K/mcL Lymphocytes # 1.2 (0.6-4.6) K/mcL Monocytes # 0.9 (0.0-1.3) K/mcL Eosinophils # 1.0 H (0.0-0.6) K/mcL Basophils # 0.1 (0.0-0.2) K/mcL Sodium 132 L (136-145) mEq/L Potassium 4.1 (3.5-5.1) mEq/L Chloride 99 (98-107) mEq/L Carbon Dioxide 26 (23-29) mEq/L BUN 13 (6-20) mg/dL Creatinine 0.74 (0.70-1.30) mg/dL Est GFR ( Amer) > 60 (> 60) Est GFR (Non-Af Amer) > 60 (> 60) BUN/Creatinine Ratio 18 (6-26) Glucose 155 H (70-105) mg/dL Calculated Osmolality 277 L (280-300) Calcium 8.9 (8.6-10.3) mg/dL Troponin I < 0.03 (< 0.04) ng/mL - Radiology Data Radiology results reviewed: Yes I reviewed the patient's radiology results. Chest X-Ray 09/09/17 19:34 IMPRESSION: Possible patchy right lower lobe airspace opacity that may represent pneumonia. D/ / Loc Woodard MD / Loc Woodard MD Interpreting Provider: Loc Woodard MD - EKG Data EKG attestation: Yes I reviewed and interpreted this EKG. EKG results narrative: EKG taken 09/09/2017 at 1913 hrs. shows sinus tachycardia at a rate of 109 beats minute with no acute ST elevations or depressions and a beats, no QRS widening or QT prolongation. Heart Score - Score History: Slightly Suspicious EKG: Non Specific repolarisation Disturbance Age: 45-65 Risk Factors: Equal/Greater than 3 risk factor or history of atherosclerotic disease Troponin: Less than normal limit HEART Score Total: 4
[2017-09-09 19:52] LABS: Basophils # 0.1 K/mcL (0.0-0.2); Basophils % 0.6 %; Eosinophils % 7.6 %; Hematocrit 38.9 % (37.5-50.1); Hemoglobin 12.7 g/dL (12.9-16.9); Immature Granulocytes % 1.8 % (0-4); Lymphocytes # 1.2 K/mcL (0.6-4.6); Lymphocytes % 9.6 %; Mean Corpuscular HGB Conc 32.6 g/dL (31.6-35.5); Mean Corpuscular Hemoglobin 27.9 pg (28.0-33.3); Mean Corpuscular Volume 85.3 fL (83.0-100.0); Mean Platelet Volume 9.7 fL (9.4-12.4); Monocytes # 0.9 K/mcL (0.0-1.3); Monocytes % 7.4 %; Neutrophils # 9.1 K/mcL (1.6-8.9); Platelet Count 460 K/mcL (140-400); Red Blood Count 4.56 M/mcL (4.19-5.50); Red Cell Distribution Width 13.1 % (11.5-14.5)
[2017-09-09 20:13] LABS: BUN/Creatinine Ratio 18 (6-26); Blood Urea Nitrogen 13 mg/dL (6-20); Calcium 8.9 mg/dL (8.6-10.3); Carbon Dioxide 26 mEq/L (23-29); Chloride 99 mEq/L (98-107); Glucose 155 mg/dL (70-105); Osmolality,Calculated 277 (280-300); Potassium 4.1 mEq/L (3.5-5.1); Sodium 132 mEq/L (136-145); eGFR For African Americans > 60 (> 60); eGFR For Non-African Americans > 60 (> 60)
[2017-09-09] MEDS ORDERED: Piperacillin/Tazobactam 3.375 GM in Water for inj. (sterile) 20 ML IVP ONE (20:15)
[2017-09-09] MEDS ORDERED: Levofloxacin 750 MG/150 ML 750 MG/150 ML BAG IVPB ONE (20:15)
[2017-09-09] MEDS ORDERED: Vancomycin 1,000 MG in D5% in Water 250 ML IVPB ONE (20:15)
[2017-09-09 20:58] LABS: INR 1.6; Prothrombin Time 16.9 Seconds (9.4-12.1)
[2017-09-09 21:00] LABS: Activated Partial Thrombo Time 28.5 Seconds (26.0-36.0)
[2017-09-09 21:11] LABS: Albumin 3.1 g/dL (3.5-5.7); Albumin/Globulin Ratio 0.7 (1.1-2.2); Bilirubin,Direct 0.3 mg/dL (0.0-0.2); Bilirubin,Indirect 0.2 mg/dL (0.0-1.2); Bilirubin,Total 0.5 mg/dL (0.3-1.0); Globulin 4.3 g/dL (2.4-3.5); Magnesium 1.9 mg/dL (1.6-2.6); Phosphorous 2.8 mg/dL (2.7-4.5); Total Protein 7.4 g/dL (6.4-8.9)
[2017-09-09] MEDS ORDERED: Naloxone 0.4 MG/ML INJ IVP PRN (21:37)
[2017-09-09] MEDS ORDERED: Acetaminophen 325 MG TABLET PO PRN (21:45)
[2017-09-09] MEDS ORDERED: *HR* HYDROcodone/Acet 5/325 mg TABLET PO PRN (21:45)
[2017-09-09] MEDS ORDERED: Albuterol 2.5 MG/3 ML NEBULIZER IH PRN (21:45)
[2017-09-09] MEDS ORDERED: Vancomycin 1,000 MG in D5% in Water 250 ML IVPB SCH (22:00)
[2017-09-09] MEDS: Ipratropium/Albuterol Neb 3 ML IH SCH (22:12)
--- NOTE | 2017-09-09 22:12 | Internal Med History&Physical ---
Date of Encounter: 09/09/17 Time of Encounter: 20:30 Assessment and Plan (1) HCAP (healthcare-associated pneumonia) Current visit: Yes Status: Acute 1. Patient has history and clinical findings consistent with RLL pneumonia. Xray confirms findings. 2. He's had 2 recent hospitalizations and will be treated for HCAP. 3. Blood cultures are drawn. 4. We will continue IV Vancomycin, Zosyn, and Levaquin. 5. Further supportive measures as detailed below. (2) Acute exacerbation of chronic obstructive pulmonary disease (COPD) Current visit: Yes Status: Acute 1. Will treat with IV steroids, aerosols, and antibiotics as above. 2. Oxygen support as needed. 3. Patient advised to quit smoking. (3) Pulmonary embolism Current visit: Yes Status: Chronic 1. Continue Eliquis per home dosing. 2. Patient without chest pain now and no history of hemoptysis. Chest pain with coughing due to pneumonia and COPD. 3. Will monitor closely and, if clinical suspicion is high for PE progression, will re-scan with CTA chest. At this time, my clinical suspicion is low. Furthermore, patient has not missed any doses of Eliquis. Qualifiers: Pulmonary embolism type: other Chronicity: chronic Acute cor pulmonale presence: without acute cor pulmonale Qualified Code(s): I27.82 - Chronic pulmonary embolism (4) S/P laminectomy Current visit: Yes Status: Chronic 1. Wound looks to be healing well in my opinion. 2. I called Dr. Polanco and asked him to see patient tomorrow and check his wound. (5) DVT prophylaxis Current visit: Yes Status: Acute 1. Continue home Eliquis. Internal Medicine - H&P: HPI Chief complaint: cough; wheeze, chest pain with cough Admitted From: Emergency Dept Plans for Post Hospital Care: Home History of present illness: Mr. Green is a 57 year old male who presents with a four-day history of cough, congestion, wheezing, fevers, chills, and dyspnea. He has had some associated chest pain with coughing and deep inspiration. He lives alone but he has had ill contacts with family and friends recently. Because of his symptom persistence and progression, he came to the ER. Workup in the ER revealed patient to have right lower lobe pneumonia and COPD exacerbation. He was treated for both and admitted to hospitalist service. Upon my assessment of the patient in the ER, patient audibly wheezing, coughing , and has some increased work of breathing. He feels much better after initial aerosols in the ER. He has no further chest pain. He admits to mild splinting and chest pain with coughing. He does have COPD and continues to smoke. He has a known pulmonary embolus diagnosed roughly 1 month ago after his spine surgery. He remains on Eliquis and has not missed any doses. He was doing well and had no shortness of breath or chest pain whatsoever until 4 days ago when he started having his acute febrile episode noted above. Given his current presentation, recent surgery, and known pulmonary embolus, he will be admitted for ongoing care and management. He has improved significantly since his initial presentation in the ER. We will continue treatment for his pneumonia, COPD, and continue his anticoagulation. Past Med Surg Social Fam HX - Past Medical History Source: patient, old records reviewed Medical history: arthritis, asthma, COPD, hypertension Psychiatric history: no psych history - Past Surgical History Surgical History: hip replacement, orthopedic, other (spine surgery) - Social History Smoking Status: Current every day smoker Smokeless Tobacco Status: No Alcohol use: occasionally Drug use: marijuana Current living situation: Home - Independent Activity Level: Independent ambulation Recent Out of Country Travel Within the Last 8 Weeks: No - Family History Mother Living Status: Still Living Hx Family Endocrine Disorder: Yes (dm) Hx Family Neurologic Disorders: Yes (dementia) - Additional Family History Additional family history: No known FH DVT/PE Internal Medicine - H&P: Meds Albuterol Sulfate [Proair Hfa] 2 puff IH Q4H PRN 10/29/16 [History] Cyclobenzaprine [Flexeril] 10 mg PO HS PRN 10/29/16 [History] Gabapentin [Neurontin] 600 mg PO TID 10/29/16 [History] Meloxicam [Mobic] 15 mg PO DAILY 10/29/16 [History] Albuterol Neb [Proventil Neb] 2.5 mg IH Q4H PRN 08/13/17 [History] Apixaban [Eliquis] 5 mg PO BID 09/09/17 [History] Beclomethasone Diprop 80mcg [QVAR 80 mcg] 1 puff IH BID 09/09/17 [History] Omeprazole [PriLOSEC] 20 mg PO DAILY 09/09/17 [History] 3 Allergy/AdvReac Type Severity Reaction Status Date / Time Sulfa (Sulfonamide Allergy Hives Verified 08/18/17 13:25 Antibiotics) - Constitutional Constitutional: chills, fever(s), no night sweats - EENT Eyes: no blurry vision, no change in vision Ears: no ear pain, no tinnitus Nose, mouth and throat: nasal congestion, no sinus pressure, no sore throat - Cardiovascular Cardiovascular ROS IM: chest pain (with coughing), dyspnea, dyspnea on exertion , no lightheadedness, no palpitations, no syncope - Respiratory Respiratory: cough, dyspnea, dyspnea on exertion, wheezing, chest congestion, excessive phlegm production, change in phlegm color, pain with cough, no hemoptysis, no pain on inspiration - Gastrointestinal Gastrointestinal: no diarrhea, no hematemesis, no hematochezia, no melena, no nausea, no vomiting - Genitourinary Genitourinary ROS male: no dysuria, no flank pain, no hematuria - Musculoskeletal Musculoskeletal ROS IM: arthralgias, back pain - Integumentary Integumentary IM: no rash, no jaundice - Neurological Neurological ROS: no disequilibrium, no dizziness, no focal weakness, no frequent falls, no headache(s) - Psychiatric Psychiatric: no anxiety, no depression - Endocrine Endocrine IM: no polydipsia, no polyuria - Hematologic/Lymphatic Hematologic/Lymphatic: easy bruising, no lymphadenopathy - Allergic/Immunologic Allergic/Immunologic: wheezing, no GI upset with certain foods - Constitutional Vitals: Temp Pulse Resp BP Pulse Ox 98.2 F 97 17 116/71 95 09/09/17 21:50 09/09/17 21:50 09/09/17 21:50 09/09/17 21:50 09/09/17 21:50 General appearance: Present: cooperative, mild distress, A&O X 3, pleasant, answers questions appropriately - Head Head exam: Present: atraumatic, normal inspection - Eye Eye exam: Present: EOMI, normal appearance, PERRL. Absent: scleral icterus Pupils: Present: normal accommodation - ENT ENT exam: Present: mucous membranes moist, normal exam, normal oropharynx - Neck Neck exam general surgery: Present: full ROM, supple. Absent: tenderness, nuchal rigidity - Respiratory Respiratory exam: Present: decreased breath sounds, prolonged expiratory phase, rales (right base), respiratory distress (mild), wheezes (diffuse). Absent: chest wall tenderness - Cardiovascular Cardiovascular exam: Present: RRR, +S1, +S2. Absent: diastolic murmur, JVD, systolic murmur - GI/Abdominal GI/Abdominal exam: Present: normal bowel sounds, soft. Absent: hepatomegaly, mass, splenomegaly, tenderness - Extremities Exam Extremities exam: Present: normal capillary refill, warm, radial pulses palpable and symmetrical. Absent: calf tenderness, joint swelling, pedal edema , tenderness - Back Exam Back exam: Present: normal inspection. Absent: CVA tenderness (L), CVA tenderness (R) Additional comments: L/S incision healing well with no sign of infection or drainage - Neurological Exam Neurological exam: Present: alert, CN II-XII intact, oriented X3, no focal deficits - Psychiatric Psychiatric exam: Present: normal affect, normal mood - Skin Skin exam: Present: dry, warm. Absent: rash Internal Med - H&P Results - Labs CBC & Chem 7: 09/09/17 19:26 09/09/17 19:26 Labs: Liver Function 09/09/17 Range/Units 20:43 Total Bilirubin 0.5 (0.3-1.0) mg/dL Direct Bilirubin 0.3 H (0.0-0.2) mg/dL AST 11 L (13-39) Units/L ALT 11 (7-52) Units/L Alkaline Phosphatase 92 (34-104) Units/L Albumin 3.1 L (3.5-5.7) g/dL - EKG Data -: EKG Interpreted by Myself - EKG Data EKG comments: 09/09/17 22:39 Sinus tachycardia with no acute changes - Diagnostic Studies Chest x-ray Status: image reviewed by me (RLL infiltrate)
[2017-09-09] MEDS: Apixaban 5 MG TABLET PO SCH (23:09)
[2017-09-09] MEDS: methylPREDNISolone 125 MG/2 ML VIAL IVP SCH (23:09)
[2017-09-09] MEDS: 0.9 % Sodium Chloride 1,000 ML IVC SCH ×3 (23:10→23:19)
[2017-09-10 00:37] LABS: Basophils % 0.3 %; Eosinophils % 0.4 %; Hematocrit 33.8 % (37.5-50.1); Immature Granulocytes % 1.7 % (0-4); Lymphocytes # 0.3 K/mcL (0.6-4.6); Lymphocytes % 3.4 %; Mean Corpuscular HGB Conc 32.8 g/dL (31.6-35.5); Mean Corpuscular Volume 85.1 fL (83.0-100.0); Mean Platelet Volume 9.6 fL (9.4-12.4); Monocytes # 0.2 K/mcL (0.0-1.3); Monocytes % 1.8 %; Neutrophils # 8.8 K/mcL (1.6-8.9); Platelet Count 383 K/mcL (140-400); Red Blood Count 3.97 M/mcL (4.19-5.50); Segmented Neutrophils % 92.4 %
[2017-09-10 00:44] LABS: Hemoglobin 11.1 g/dL (12.9-16.9)
[2017-09-10 00:48] LABS: Alanine Aminotransferase 10 Units/L (7-52); Albumin 2.8 g/dL (3.5-5.7); Albumin/Globulin Ratio 0.7 (1.1-2.2); Alkaline Phosphatase 82 Units/L (34-104); Aspartate Amino Transferase 10 Units/L (13-39); BUN/Creatinine Ratio 14 (6-26); Bilirubin,Total 0.4 mg/dL (0.3-1.0); Blood Urea Nitrogen 13 mg/dL (6-20); Calcium 8.3 mg/dL (8.6-10.3); Carbon Dioxide 25 mEq/L (23-29); Chloride 102 mEq/L (98-107); Globulin 3.9 g/dL (2.4-3.5); Glucose 245 mg/dL (70-105); Magnesium 1.8 mg/dL (1.6-2.6); Osmolality,Calculated 284 (280-300); Potassium 3.6 mEq/L (3.5-5.1); Sodium 133 mEq/L (136-145); Total Protein 6.7 g/dL (6.4-8.9); eGFR For African Americans > 60 (> 60); eGFR For Non-African Americans > 60 (> 60)
[2017-09-10] MEDS: Ipratropium/Albuterol Neb 3 ML IH SCH ×4 (04:39→21:35)
[2017-09-10] MEDS: Gabapentin 300 MG CAPSULE PO SCH ×3 (08:55→20:50)
[2017-09-10] MEDS: methylPREDNISolone 125 MG/2 ML VIAL IVP SCH ×2 (08:55→17:27)
[2017-09-10] MEDS: Apixaban 5 MG TABLET PO SCH ×2 (08:55→20:50)
[2017-09-10] MEDS: Vancomycin 1,250 MG in D5% in Water 250 ML IVPB SCH ×2 (09:35→20:51)
[2017-09-10] MEDS: Beclomethasone 80mcg MDI IH SCH ×2 (10:28→21:35)
[2017-09-10] MEDS: Levofloxacin 750 MG/150 ML 750 MG/150 ML BAG IVPB SCH (17:27)
--- NOTE | 2017-09-10 18:01 | Internal Med Progress Note ---
Date of Encounter: 09/10/17 Time of Encounter: 17:59 - Assessment and plan (1) Acute exacerbation of chronic obstructive pulmonary disease (COPD) Current Visit: Yes Status: Acute Assessment and plan: Continue IV steroids, DuoNeb, antibiotics O2 to maintain saturations greater than 88% May need a 6 minute walk test before discharge Smoking cessation (2) HCAP (healthcare-associated pneumonia) Current Visit: Yes Status: Acute Assessment and plan: Right lower lobe pneumonia by exam and x-ray findings 2 recent hospitalizations so retreated for HCAP Blood cultures pending Continue IV vancomycin,, Zosyn and Levaquin (3) Pulmonary embolism Current Visit: Yes Status: Chronic Assessment and plan: Continue eliquis per home dosing Patient without chest pain or hemoptysis on admission Chest pain secondary to coughing with pneumonia and COPD Patient has missed no doses of our crisis suspicion is low for PE progression Symptoms are slowly resolving Qualifiers: Pulmonary embolism type: other Chronicity: chronic Acute cor pulmonale presence: without acute cor pulmonale Qualified Code(s): I27.82 - Chronic pulmonary embolism (4) S/P laminectomy Current Visit: Yes Status: Chronic Assessment and plan: Wound healing, Dr. Polanco asked to evaluate the patient's wound (5) DVT prophylaxis Current Visit: Yes Status: Acute Assessment and plan: Patient is on Eliquis - Constitutional Vitals: Temp Pulse Resp BP Pulse Ox 97.8 F 86 16 123/69 95 09/10/17 15:21 09/10/17 15:21 09/10/17 15:50 09/10/17 15:21 09/10/17 15:50 General appearance: Present: cooperative, A&O X 3, pleasant, no acute distress, answers questions appropriately - Head Head exam: Present: atraumatic, normocephalic - Eye Eye exam: Present: PERRL, conjuntiva pink, sclera anicteric Pupils: Present: PERRL - Neck Neck exam general surgery: Present: supple, trachea midline. Absent: lymphadenopathy - Respiratory Respiratory exam: Present: prolonged expiratory phase, wheezes. Absent: accessory muscle use, rales, rhonchi - Cardiovascular Cardiovascular exam: Present: RRR, +S1, +S2. Absent: diastolic murmur, gallop, rubs, systolic murmur - GI/Abdominal GI/Abdominal exam: Present: normal bowel sounds, soft, no peritoneal signs. Absent: distended, tenderness - Extremities Exam Extremities exam: Present: warm, radial pulses palpable and symmetrical. Absent : calf tenderness, cyanotic, pedal edema - Neurological Exam Neurological exam: Present: CN II-XII intact, oriented X3, no focal deficits. Absent: pronater drift, facial droop, speech deficit - Skin Skin exam: Present: dry, intact, warm Internal Medicine: Result - Labs CBC & Chem 7: 09/10/17 00:24 09/10/17 00:24 Labs: Short CBC 09/10/17 Range/Units 00:24 WBC 9.5 (4.3-11.1) K/mcL Hgb 11.1 L D (12.9-16.9) g/dL Hct 33.8 L (37.5-50.1) % Plt Count 383 (140-400) K/mcL Neutrophils # 8.8 (1.6-8.9) K/mcL BMP 09/10/17 00:24 Sodium 133 L Potassium 3.6 Chloride 102 Carbon Dioxide 25 BUN 13 Creatinine 0.95 Glucose 245 H Calcium 8.3 L Liver Function 09/10/17 Range/Units 00:24 Total Bilirubin 0.4 (0.3-1.0) mg/dL AST 10 L (13-39) Units/L ALT 10 (7-52) Units/L Alkaline Phosphatase 82 (34-104) Units/L Albumin 2.8 L (3.5-5.7) g/dL - ABG Interpretation ABG results: PT/INR, D-dimer PT 16.9 Seconds (9.4-12.1) H 09/09/17 20:43 Consult Discharge Plan - Plan Referrals: Rito Hurst MD [Primary Care Provider] - 09/18/17 2:45 pm
[2017-09-10] MEDS ORDERED: 0.9 % Sodium Chloride 1,000 ML ONE (20:45)
[2017-09-10] MEDS: 0.9 % Sodium Chloride 1,000 ML IVC SCH (20:52)
--- NOTE | 2017-09-10 20:54 | Electrocardiograph Report ---
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
[2017-09-10] MEDS: Nicotine 14 MG PATCH.TD24 TD SCH (22:12)
[2017-09-11] MEDS: methylPREDNISolone 125 MG/2 ML VIAL IVP SCH ×4 (00:21→23:43)
[2017-09-11] MEDS: Ipratropium/Albuterol Neb 3 ML IH SCH ×4 (03:56→21:41)
--- NOTE | 2017-09-11 07:42 | Spine Progress Note ---
Date of Encounter: 09/10/17 Time of Encounter: 14:05 Subjective Principal diagnosis: s/p lumbar decompression Interval history: Patient is well known to practice after lumbar surgery one month ago. Incision is clean dry and intact. Afebrile vital signs stable. He is neurovascularly intact with regard to his bilateral lower extremities. I have no concerns regarding his wound. Follow-up as scheduled next week. Objective Vital signs: Vital Signs Temp Pulse Resp BP Pulse Ox 09/11/17 06:54 97.7 F 82 16 122/77 94 09/11/17 03:56 20 97 09/11/17 03:44 97.9 F 87 16 122/71 95 09/10/17 23:33 97.5 F L 90 14 117/68 95 09/10/17 21:35 22 99 09/10/17 19:24 98.5 F 88 15 132/77 986 09/10/17 15:50 16 95 09/10/17 15:21 97.8 F 86 18 123/69 94 09/10/17 11:46 97.9 F 86 20 115/64 94 09/10/17 10:28 16 98 Intake and Output 09/10/17 09/10/17 09/11/17 15:59 23:59 07:59 Intake Total 1070 / 1070 1100 / 1100 350 / 350 Output Total 300 / 300 350 / 350 450 / 450 Balance 770 / 770 750 / 750 -100 / -100 Intake: IV Fluids 350 / 350 1100 / 1100 350 / 350 0.9 % Sodium Chloride 1,000 ML 1000 / 1000 @ 100 mls/hr IVC .Q10H [facility] Rx#: [id number] Zosyn 3.375 GM In 0.9 % Sodium 100 / 100 100 / 100 100 / 100 Chloride 100 ML @ 25 mls/hr IVPB Q8H [facility] Rx#:[id number] Vancocin 1,250 MG In Dextrose 5 250 / 250 250 / 250 % 250 ML @ 166.67 mls/hr IVPB Q12H [facility] Rx#:[id number] Oral 720 / 720 Output: Urine 300 / 300 350 / 350 450 / 450 Other: Meal Lunch Percent of Meal Consumed 100% Weight 75.115 kg Patient Weight 09/11/17 23:59 Weight 75.115 kg - Labs CBC & BMP: 09/10/17 00:24 09/10/17 00:24 Labs: Abnormal lab results RBC 3.97 M/mcL (4.19-5.50) L 09/10/17 00:24 Hgb 11.1 g/dL (12.9-16.9) L D 09/10/17 00:24 Hct 33.8 % (37.5-50.1) L 09/10/17 00:24 Lymphocytes # 0.3 K/mcL (0.6-4.6) L 09/10/17 00:24 PT 16.9 Seconds (9.4-12.1) H 09/09/17 20:43 Sodium 133 mEq/L (136-145) L 09/10/17 00:24 Glucose 245 mg/dL (70-105) H 09/10/17 00:24 Calcium 8.3 mg/dL (8.6-10.3) L 09/10/17 00:24 Direct Bilirubin 0.3 mg/dL (0.0-0.2) H 09/09/17 20:43 AST 10 Units/L (13-39) L 09/10/17 00:24 Albumin 2.8 g/dL (3.5-5.7) L 09/10/17 00:24 Globulin 3.9 g/dL (2.4-3.5) H 09/10/17 00:24 Albumin/Globulin Ratio 0.7 (1.1-2.2) L 09/10/17 00:24 Consult Discharge Plan - Plan Referrals: Rito Hurst MD [Primary Care Provider] - 09/18/17 2:45 pm
[2017-09-11] MEDS: Apixaban 5 MG TABLET PO SCH ×2 (09:08→21:07)
[2017-09-11] MEDS: Nicotine 14 MG PATCH.TD24 TD SCH (09:08)
[2017-09-11] MEDS: Gabapentin 300 MG CAPSULE PO SCH ×3 (09:08→21:07)
[2017-09-11] MEDS: Beclomethasone 80mcg MDI IH SCH ×2 (11:05→21:41)
[2017-09-11] MEDS: Vancomycin 1,500 MG in D5% in Water 250 ML IVPB SCH ×2 (11:42→23:44)
--- NOTE | 2017-09-11 14:58 | Internal Med Progress Note ---
Date of Encounter: 09/11/17 Time of Encounter: 14:55 - Assessment and plan (1) Acute exacerbation of chronic obstructive pulmonary disease (COPD) Current Visit: Yes Status: Acute Assessment and plan: Continue IV steroids, DuoNeb, antibiotics O2 to maintain saturations greater than 88% 6 minute walk test before discharge Smoking cessation (2) HCAP (healthcare-associated pneumonia) Current Visit: Yes Status: Acute Assessment and plan: Right lower lobe pneumonia by exam and x-ray findings 2 recent hospitalizations so retreated for HCAP Blood cultures no growth 2 bottles on preliminary readings Continue IV vancomycin,, Zosyn and Levaquin (3) Pulmonary embolism Current Visit: Yes Status: Chronic Assessment and plan: Continue eliquis per home dosing Patient without chest pain or hemoptysis Chest pain secondary to coughing with pneumonia and COPD Patient has missed no doses of our crisis suspicion is low for PE progression Symptoms are slowly resolving Qualifiers: Pulmonary embolism type: other Chronicity: chronic Acute cor pulmonale presence: without acute cor pulmonale Qualified Code(s): I27.82 - Chronic pulmonary embolism (4) S/P laminectomy Current Visit: Yes Status: Chronic Assessment and plan: Wound healing, Dr. Polanco saw the patient, his note states that wound is healing well and to follow-up as directed (5) DVT prophylaxis Current Visit: Yes Status: Acute Assessment and plan: Patient is to continue Eliquis - Subjective Interval history: She feels a lot better. He is still coughing some. Or the repeated was by and told him his incision looks good he will follow-up with him next week. He denies any chest pain, shortness of breath, fever, chills, abdominal pain, or changes in bowel or bladder - Constitutional Vitals: Temp Pulse Resp BP Pulse Ox 98.0 F 80 16 142/75 98 09/11/17 11:06 09/11/17 11:06 09/11/17 11:10 09/11/17 11:09/11/17 11:10 General appearance: Present: cooperative, A&O X 3, pleasant, no acute distress, answers questions appropriately - Head Head exam: Present: atraumatic, normocephalic - Eye Eye exam: Present: PERRL, conjuntiva pink, sclera anicteric Pupils: Present: PERRL - Neck Neck exam general surgery: Present: supple, trachea midline. Absent: lymphadenopathy - Respiratory Respiratory exam: Present: wheezes. Absent: accessory muscle use, rales, rhonchi Additional comments: Cough on forced expiration - Cardiovascular Cardiovascular exam: Present: RRR, +S1, +S2. Absent: diastolic murmur, gallop, rubs, systolic murmur - GI/Abdominal GI/Abdominal exam: Present: normal bowel sounds, soft, no peritoneal signs. Absent: distended, tenderness - Extremities Exam Extremities exam: Present: warm, radial pulses palpable and symmetrical. Absent : calf tenderness, cyanotic, pedal edema - Neurological Exam Neurological exam: Present: CN II-XII intact, oriented X3, no focal deficits. Absent: pronater drift, facial droop, speech deficit - Skin Skin exam: Present: dry, intact, warm Internal Medicine: Result - Labs CBC & Chem 7: 09/10/17 00:24 09/10/17 00:24 - ABG Interpretation ABG results: PT/INR, D-dimer PT 16.9 Seconds (9.4-12.1) H 09/09/17 20:43 Consult Discharge Plan - Plan Referrals: Rito Hurst MD [Primary Care Provider] - 09/18/17 2:45 pm
[2017-09-11] MEDS: Levofloxacin 750 MG/150 ML 750 MG/150 ML BAG IVPB SCH (18:19)
[2017-09-11] MEDS: Vancomycin 1,250 MG in D5% in Water 250 ML IVPB SCH (23:33)
[2017-09-12] MEDS: Ipratropium/Albuterol Neb 3 ML IH SCH ×2 (03:54→10:58)
[2017-09-12] MEDS: methylPREDNISolone 125 MG/2 ML VIAL IVP SCH (09:28)
[2017-09-12] MEDS: Nicotine 14 MG PATCH.TD24 TD SCH (09:28)
[2017-09-12] MEDS: Gabapentin 300 MG CAPSULE PO SCH (09:28)
[2017-09-12] MEDS: Apixaban 5 MG TABLET PO SCH (09:28)
[2017-09-12 10:34] VITALS: BP 116/64
[2017-09-12] MEDS: Beclomethasone 80mcg MDI IH SCH (10:57)
--- NOTE | 2017-09-12 11:53 | Discharge Summary ---
Date of Encounter: 09/12/17 Time of Encounter: 11:47 - Discharge Diagnosis (1) Acute exacerbation of chronic obstructive pulmonary disease (COPD) Priority: Primary Status: Acute Comments: Patient was admitted with exacerbation of COPD He was on Solu-Medrol which has been changed to a prednisone taper on discharge He will resume his normal home regime of medications and inhalers Did add duo nebs via his nebulizer every 6 hours for wheezing He had no pulmonary follow-up so did arrange for him to see the pulmonology service next Saturday as an outpatient He did require oxygen when he first arrived but was on room air and satting well without any difficulties on discharge (2) HCAP (healthcare-associated pneumonia) Priority: Primary Status: Acute Comments: Was converted to IV antibiotics thank and Zosyn and Levaquin to Augmentin on discharge He he had a right lower lobe pneumonia by exam and x-ray findings He had 2 recent hospitalizations including a back surgery Blood cultures were no growth 2 bottles Influenza panel was negative for a and B (3) Pulmonary embolism Priority: Secondary Status: Chronic Comments: Patient will continue hiseliquis as per home dosing Patient without chest pain or hemoptysis Coughing did reproduce some chest pain Qualifiers: Pulmonary embolism type: other Chronicity: chronic Acute cor pulmonale presence: without acute cor pulmonale Qualified Code(s): I27.82 - Chronic pulmonary embolism (4) S/P laminectomy Priority: Secondary Status: Chronic Comments: Dr. Polanco saw the patient here and examined him. He stated the wound was healing well and he would follow up next week in the office as directed - Discharge Medications Prescriptions: Ipratropium/Albuterol Neb [Duoneb] 3 ml IH [id number] #90 inhsol Ipratropium/Albuterol Neb [Duoneb] 3 ml IH Q6HR #30 vial.neb Amoxicillin/Clavulanate [Augmentin] 1 mg PO BID #16 tablet Nicotine Patch [Nicoderm] 14 mg TD DAILY #7 patch.td24 Nicotine Patch [Nicoderm] 14 mg TD DAILY #7 patch.td24 predniSONE [PredniSONE] 10 mg PO DAILY #30 tablet Home Medications: Albuterol Sulfate [Proair Hfa] 2 puff IH Q4H PRN 10/29/16 [History] Cyclobenzaprine [Flexeril] 10 mg PO HS PRN 10/29/16 [History] Gabapentin [Neurontin] 600 mg PO TID 10/29/16 [History] Meloxicam [Mobic] 15 mg PO DAILY 10/29/16 [History] Albuterol Neb [Proventil Neb] 2.5 mg IH Q4H PRN 08/13/17 [History] Apixaban [Eliquis] 5 mg PO BID 09/09/17 [History] Beclomethasone Diprop 80mcg [QVAR 80 mcg] 1 puff IH BID 09/09/17 [History] Omeprazole [PriLOSEC] 20 mg PO DAILY 09/09/17 [History] Amoxicillin/Clavulanate [Augmentin] 1 mg PO BID #16 tablet 09/12/17 [Rx] Ipratropium/Albuterol Neb [Duoneb] 3 ml IH Q6HR #30 vial.neb 09/12/17 [Rx] Ipratropium/Albuterol Neb [Duoneb] 3 ml IH [id number] #90 inhsol 09/12/17 [Rx] Nicotine Patch [Nicoderm] 14 mg TD DAILY #7 patch.td24 09/12/17 [Rx] Nicotine Patch [Nicoderm] 14 mg TD DAILY #7 patch.td24 09/12/17 [Rx] predniSONE [PredniSONE] 10 mg PO DAILY #30 tablet 09/12/17 [Rx] Allergies/Adverse Reactions: 3 Allergy/AdvReac Type Severity Reaction Status Date / Time Sulfa (Sulfonamide Allergy Hives Verified 08/18/17 13:25 Antibiotics) Procedures/tests Complete & Pending: Procedures Performed prior 72 hours Category Date Time Status ECG 12 lead ECG [ECG] Routine Y 09/09/17 19:13 Completed Date of admission: 09/09/17 21:37 Primary care physician: Rito Hurst Consults: 09/09/17 22:53 Consult to Orthopedic Surgery [CONS] Routine Consulting Provider: Eliazar Polanco Jr Reason for Consult: s/p laminectomy; check wound please Time Notified: 22:54 Call Completed: Yes Discharging clinician: Mckenna Wong Anticipated date of discharge: 09/12/17 - Patient Status Disposition: Home, Self-Care Condition: Good Functional capacity at discharge: independent ambulation Overall status at discharge: patient is progressing back to baseline - Discharge Instructions Instructions: How to Stop Smoking (DC), Chronic Obstructive Pulmonary Disease ( DC), Pneumonia (DC) Follow Up With: [facility] [Provider Group] - 09/17/17 3:15 pm Rito Hurst MD [Primary Care Provider] - 09/18/17 2:45 pm - Diet and Activity Activity: resume usual activities as tolerated Diet: advance to your usual diet Interval History: Patient felt much better today and was ready to go home. Discussed his need for smoking cessation and for follow-up with his PCP closely as well as pulmonology as recommended. He is going to follow-up with him as we have arranged as well as his PCP and his orthopedic doctor. He denied any chest pain , he stated his breathing was better, he had no shortness of breath on room air and had been up walking in the halls without any difficulty. No fevers or chills no sweats. Hospital course: Mr. Green is a 57 year old male presented with pneumonia and COPD exacerbation. He was on IV antibiotics and IV steroids as well as DuoNeb's. He initially required oxygen but his needs were decreased as he improved. Today he is on room air walking without any problem he has minimal wheezes. Discussed follow- up with pulmonology next week he will be discharged on prednisone and antibiotic. He verbalized understanding. He also will follow up with orthopedic Dr. Polanco regarding his laminectomy. - Time Spent with Patient Total time spent providing and/or coordinating discharge services: Less than 30 minutes - Constitutional Vitals: Temp Pulse Resp BP Pulse Ox 98.8 F 81 16 116/64 95 09/12/17 10:33 09/12/17 10:33 09/12/17 10:59 09/12/17 10:33 09/12/17 10:59 General appearance: Present: cooperative, A&O X 3, pleasant, no acute distress, answers questions appropriately - Head Head exam: Present: atraumatic, normocephalic - Eye Eye exam: Present: PERRL, conjuntiva pink, sclera anicteric Pupils: Present: PERRL - Neck Neck exam general surgery: Present: supple, trachea midline. Absent: lymphadenopathy - Respiratory Respiratory exam: Absent: accessory muscle use, rales, rhonchi, wheezes Additional comments: Slightly decreased in the bases with mild cough on forced expiration but no bronchospasm and no wheezes bilaterally. - Cardiovascular Cardiovascular exam: Present: RRR, +S1, +S2. Absent: diastolic murmur, gallop, rubs, systolic murmur - GI/Abdominal GI/Abdominal exam: Present: normal bowel sounds, soft, no peritoneal signs. Absent: distended, tenderness - Extremities Exam Extremities exam: Present: warm, radial pulses palpable and symmetrical. Absent : calf tenderness, cyanotic, pedal edema - Neurological Exam Neurological exam: Present: CN II-XII intact, oriented X3, no focal deficits. Absent: pronater drift, facial droop, speech deficit - Skin Skin exam: Present: dry, intact, warm
[2017-09-12] MEDS: Vancomycin 1,500 MG in D5% in Water 250 ML IVPB SCH (12:12)
[2017-09-12] MEDS ORDERED: Aminoglycoside Consult 1 EACH MC ONE (14:29)
== END 2017-09-12 14:30 | disposition home or self-care (01) | DRG 139 ==
LOC: 3BNU 19:09 → EMEROO 19:09 → 3BNU 21:13
PROVIDERS: ADMIT Pediatrics; ATTEND Registered Nurse

== ENCOUNTER 2019-10-28 22:52 | Observation (INO) ==
[2019-10-28] MEDS ORDERED: 0.9 % Sodium Chloride 1,000 ML IVC ONE (23:40)
[2019-10-28] MEDS ORDERED: Acetaminophen 325 MG TABLET PO ONE (23:40)
[2019-10-29 00:13] LABS: INR 1.1; Prothrombin Time 12.3 Seconds (9.4-12.1)
[2019-10-29 00:15] LABS: Activated Partial Thrombo Time 30.8 Seconds (26.0-36.0); Basophils % 0.4 %; Hemoglobin 15.3 g/dL (12.9-16.9); Immature Granulocytes % 0.9 % (0-4); Lymphocytes # 0.6 K/mcL (0.6-4.6); Lymphocytes % 5.3 %; Mean Corpuscular HGB Conc 33.3 g/dL (31.6-35.5); Mean Corpuscular Hemoglobin 30.8 pg (28.0-33.3); Mean Corpuscular Volume 92.7 fL (83.0-100.0); Mean Platelet Volume 10.2 fL (9.4-12.4); Monocytes # 0.7 K/mcL (0.0-1.3); Monocytes % 6.2 %; Platelet Count 261 K/mcL (140-400); Red Blood Count 4.96 M/mcL (4.19-5.50); Red Cell Distribution Width 14.3 % (11.5-14.5); Segmented Neutrophils % 87.2 %; White Blood Count 11.4 K/mcL (4.3-11.1)
[2019-10-29 00:29] LABS: Alanine Aminotransferase 8 Units/L (7-52); Albumin 4.1 g/dL (3.5-5.7); Albumin/Globulin Ratio 1.2 (1.1-2.2); Alkaline Phosphatase 70 Units/L (34-104); Aspartate Amino Transferase 14 Units/L (13-39); BUN/Creatinine Ratio 16 (6-26); Bilirubin,Direct 0.1 mg/dL (0.0-0.2); Bilirubin,Indirect 0.4 mg/dL (0.0-1.0); Bilirubin,Total 0.5 mg/dL (0.3-1.0); Blood Urea Nitrogen 16 mg/dL (6-20); Calcium 9.4 mg/dL (8.6-10.3); Carbon Dioxide 25 mEq/L (23-29); Chloride 105 mEq/L (98-107); Globulin 3.3 g/dL (2.4-3.5); Glucose 114 mg/dL (70-105); Osmolality,Calculated 282 (280-300); Potassium 4.1 mEq/L (3.5-5.1); Sodium 135 mEq/L (136-145); Total Protein 7.4 g/dL (6.4-8.9); Troponin I < 0.03 ng/mL (< 0.04); eGFR For African Americans > 60 (> 60); eGFR For Non-African Americans > 60 (> 60)
[2019-10-29] MEDS ORDERED: cefTRIAXone 1,000 MG in 0.9 % Sodium Chloride Mini Bag 100 ML IVPB ONE (01:52)
[2019-10-29] MEDS ORDERED: Azithromycin 500 MG in 0.9 % Sodium Chloride 250 ML IVPB ONE (01:52)
[2019-10-29 02:17] LABS: Adenovirus Not Detected (Not Detect); Bordetella Pertussis Not Detected (Not Detect); Chlamydophila pneumoniae Not Detected (Not Detect); Coronavirus 229E Not Detected (Not Detect); Coronavirus HKU1 Not Detected (Not Detect); Coronavirus NL63 Not Detected (Not Detect); Coronavirus OC43 Not Detected (Not Detect); Human Metapneumovirus DETECTED (Not Detect); Human Rhinovirus/Enterovirus Not Detected (Not Detect); Influenza A Subtype 2009 H1 Not Detected (Not Detect); Influenza B Not Detected (Not Detect); Mycoplasma pneumoniae Not Detected (Not Detect); Parainfluenza Virus 1 Not Detected (Not Detect); Parainfluenza Virus 2 Not Detected (Not Detect); Parainfluenza Virus 3 Not Detected (Not Detect); Parainfluenza Virus 4 Not Detected (Not Detect); Respiratory Syncytial Virus Not Detected (Not Detect)
[2019-10-29 02:35] LABS: Bilirubin,Urine Negative (Negative); Blood,Urine Negative (Negative); Clarity,Urine Clear (Clear); Color,Urine Yellow (Yellow); Glucose,Urine (UA) Normal (Normal); Ketones,Urine 15 mg/dL (Negative); Leukocyte Esterase,Urine Negative (Negative); Nitrite,Urine Negative (Negative); PH,Urine 6.5 pH Units (5.0-8.0); Protein,Urine 100 mg/dL (Neg-Trace); Specific Gravity,Urine 1.023 (1.010-1.025); Urobilinogen,Urine Normal (Normal)
[2019-10-29 02:37] LABS: Bacteria,Urine None Seen per hpf (None-Few); Hyaline Casts,Urine None Seen per lpf (None-Few); RBC,Urine 0-3 per hpf (0-3); Squamous Epithelial Cell,Urine Few per lpf (None-Few); WBC,Urine 0-3 per hpf (0-3)
[2019-10-29] MEDS ORDERED: Naloxone 0.4 MG/ML INJ IVP PRN (02:51)
[2019-10-29] MEDS ORDERED: 0.9 % Sodium Chloride 1,000 ML IVC SCH (03:00)
[2019-10-29] MEDS: Ipratropium/Albuterol Neb 3 ML IH SCH ×5 (04:45→20:14)
[2019-10-29 05:20] LABS: Basophils % 0.3 %; Hemoglobin 14.1 g/dL (12.9-16.9); Immature Granulocytes % 0.5 % (0-4); Lymphocytes # 1.1 K/mcL (0.6-4.6); Lymphocytes % 8.2 %; Mean Corpuscular HGB Conc 33.6 g/dL (31.6-35.5); Mean Corpuscular Hemoglobin 31.3 pg (28.0-33.3); Mean Corpuscular Volume 93.3 fL (83.0-100.0); Mean Platelet Volume 10.3 fL (9.4-12.4); Monocytes # 0.9 K/mcL (0.0-1.3); Monocytes % 6.9 %; Neutrophils # 11.1 K/mcL (1.6-8.9); Platelet Count 251 K/mcL (140-400); Red Cell Distribution Width 14.2 % (11.5-14.5); Segmented Neutrophils % 84.1 %; White Blood Count 13.2 K/mcL (4.3-11.1)
[2019-10-29] MEDS: *HR* Heparin 5,000 UNIT/ML VIAL SQ SCH ×3 (05:24→21:07)
[2019-10-29 05:38] LABS: BUN/Creatinine Ratio 16 (6-26); Blood Urea Nitrogen 14 mg/dL (6-20); Calcium 8.5 mg/dL (8.6-10.3); Carbon Dioxide 22 mEq/L (23-29); Chloride 106 mEq/L (98-107); Glucose 109 mg/dL (70-105); Osmolality,Calculated 277 (280-300); Potassium 3.9 mEq/L (3.5-5.1); Sodium 133 mEq/L (136-145); eGFR For African Americans > 60 (> 60); eGFR For Non-African Americans > 60 (> 60)
[2019-10-29] MEDS ORDERED: Acetaminophen 325 MG TABLET PO PRN ×2 (05:40→06:00)
[2019-10-29] MEDS ORDERED: MethylPREDNISolone 40 MG/ML VIAL IVP SCH (06:00)
[2019-10-29] MEDS: Nicotine 14 MG PATCH.TD24 TD SCH (09:02)
[2019-10-29] MEDS: MethylPREDNISolone 40 MG/ML VIAL IVP SCH (15:59)
[2019-10-30] MEDS: Ipratropium/Albuterol Neb 3 ML IH SCH ×4 (00:11→11:28)
[2019-10-30] MEDS: MethylPREDNISolone 40 MG/ML VIAL IVP SCH ×2 (00:24→09:19)
[2019-10-30] MEDS ORDERED: Azithromycin 500 MG in 0.9 % Sodium Chloride 250 ML IVPB SCH (01:00)
[2019-10-30 01:02] LABS: Hematocrit 40.6 % (37.5-50.1); Hemoglobin 13.4 g/dL (12.9-16.9); Mean Corpuscular Hemoglobin 31.2 pg (28.0-33.3); Mean Corpuscular Volume 94.4 fL (83.0-100.0); Mean Platelet Volume 10.4 fL (9.4-12.4); Platelet Count 222 K/mcL (140-400); Red Cell Distribution Width 13.9 % (11.5-14.5); White Blood Count 10.2 K/mcL (4.3-11.1)
[2019-10-30 01:22] LABS: BUN/Creatinine Ratio 25 (6-26); Blood Urea Nitrogen 20 mg/dL (6-20); Calcium 8.7 mg/dL (8.6-10.3); Carbon Dioxide 22 mEq/L (23-29); Chloride 107 mEq/L (98-107); Glucose 141 mg/dL (70-105); Osmolality,Calculated 285 (280-300); Sodium 135 mEq/L (136-145); eGFR For African Americans > 60 (> 60); eGFR For Non-African Americans > 60 (> 60)
[2019-10-30] MEDS: *HR* Heparin 5,000 UNIT/ML VIAL SQ SCH (05:05)
[2019-10-30] MEDS: Nicotine 14 MG PATCH.TD24 TD SCH (09:19)
[2019-10-30] MEDS ORDERED: Budesonide/Formoterol 160/4.5 1 PUFF INH IH SCH (10:00)
[2019-10-30] MEDS ORDERED: Tiotropium 18 MCG inhalation IH SCH (10:00)
[2019-10-30 11:56] VITALS: BP 152/72
== END 2019-10-30 14:04 | disposition home or self-care (01) ==
LOC: 2NENU 22:52 → EMEROOARM 22:52 → SUATTDRO 10-29 02:55 → 2ANU 10-29 03:42
PROVIDERS: ADMIT Student in an Organized Health Care Education/Training Program; ATTEND Internal Medicine